=== PATIENT | female | born 1980 ===

== ENCOUNTER 2017-10-12 18:50 | Inpatient (IN) | payer BC ==
[2017-10-12 21:50] VITALS: BMI 41.8
[2017-10-12] MEDS: SODIUM CHLORIDE 0.9% 1,000 ML IV SCH (22:43)
[2017-10-12] MEDS: MORPHINE SULFATE 2 MG/ML SYRINGE IVP PRN (22:43)
[2017-10-12] MEDS: PANTOPRAZOLE 40 MG/10 ML VIAL IVP SCH (23:26)
[2017-10-12] MEDS ORDERED: ALPRAZolam 0.25 MG TAB PO PRN (23:59)
[2017-10-12] MEDS ORDERED: TEMAZEPAM 15 MG CAP PO PRN (23:59)
--- NOTE | 2017-10-13 04:39 | HP ---
HISTORY AND PHYSICAL DATE OF SERVICE: 10/12/2017 CHIEF COMPLAINT: Abdominal pain, nausea, vomiting. HISTORY OF PRESENT ILLNESS: This 37 -year-old woman with past medical history of hypertension, GERD, sleep apnea, not being followed by any primary care physician in the outpatient presents complaining of upper abdominal pain, nausea, vomiting for the last couple of days. The patient was evaluated in [facility] a couple days ago and today again because of increasing symptoms, the patient went there and patient was found to have obstructive jaundice with elevated bilirubin, elevated AST, ALT. The patient has also had intrahepatic biliary dilatation on the CT scan. Ultrasound could not be done. Because of multiple abnormalities, the patient was directly transferred to [facility] and admitted to the hospital for further evaluation and treatment. There is no history of any fever, rigors or chills. No history of headache, loss of consciousness, seizures at this time. PAST MEDICAL HISTORY: GERD, hypertension, sleep apnea. MEDICATIONS: Medications prior to admission include home medications are omeprazole. ALLERGIES: None. FAMILY HISTORY: History of diabetes mellitus in the family. SOCIAL HISTORY: No history of smoking. Occasional alcohol intake. 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 REVIEW OF SYSTEMS: ENT: No diminished vision. No diminished hearing. CARDIOVASCULAR: No angina or palpitations. RESPIRATORY: As mentioned earlier. GI as mentioned earlier : No dysuria or hematuria. Central nervous system: No numbness or weakness. Allergy/Immunology: No asthma or hayfever. Musculoskeletal as mentioned earlier. HEMATOLOGY/ONCOLOGY: No history of anemia. Endocrine: No history of diabetes or hypothyroidism. Constitutional: As mentioned earlier. Dermatology: Negative. Rheumatology: Negative. Psychiatric: As mentioned earlier. PHYSICAL EXAMINATION: Alert, oriented times three. Pulse 61, blood pressure 148/84, respiration 16, temperature 97.7, pulse ox 98% on room air. HEENT: Conjunctivae normal. Oral mucosa moist. NECK is no jugular venous distention. No carotid bruit. No lymph node enlargement. CARDIOVASCULAR SYSTEM: S1, S2 muffled. No S3, no S4. RESPIRATORY: Breath sounds diminished in the bases. No rhonchi and no crackles. ABDOMEN: Soft, obese, mild diffuse tenderness in the right upper quadrant. Otherwise no guarding, no rigidity. No mass palpable. No ascites. Bowel sounds diminished. LEGS: No edema and no swelling. NERVOUS SYSTEM: Higher functions as mentioned earlier. Moves all four limbs. No focal motor or sensory deficits. LYMPHATICS: No lymph nodes palpable in the neck, axillae or groin. SKIN: No ulcer, rash or bleeding. LAB STUDIES: Evaluated from outside. ASSESSMENT: 1. Right upper quadrant abdominal pain, nausea, vomiting, possible acute cholelithiasis with cholecystitis. 2. Possible obstructive jaundice. 3. Increased AST, ALT, alkaline phosphatase. 4. Gastroesophageal reflux disease. 5. Hypertension. 6. Sleep apnea. 7. Obesity with body mass index of 41.8. RECOMMENDATIONS AND DISCUSSION: In this 37-year-old woman who presented with multiple complex medical issues, we will monitor the patient closely, continue the current management and continue symptomatic treatment. Otherwise I would recommend gastroenterology consultation. Repeat labs. IV fluids. DVT prophylaxis. Monitor blood pressure closely. Otherwise, symptomatic treatment will be provided. The patient also will be recommended to follow up closely with primary physician after discharge as well. Surgery and Gastroenterology will be consulted. Further recommendations to follow. MMODL / IJN: [id number] /
[2017-10-13] MEDS: HYDROcodone/APAP 5-325MG 1 EACH TAB PO PRN (05:09)
--- NOTE | 2017-10-13 08:09 | US ---
EXAMINATION TYPE: US liver DATE OF EXAM: 10/13/2017 COMPARISON: NONE CLINICAL HISTORY: Poss Cholecystitis. EXAM MEASUREMENTS: Liver Length: 17.6 cm Gallbladder Wall: 0.5 cm CBD: 0.6 cm Right Kidney: 11.2 x 5.0 x 6.0 cm Pancreas: Obscured by bowel gas Liver: There is a coarsened and heterogenous hepatic echotexture, most commonly related to underlyin g hepatic steatosis. This limits evaluation for hepatic masses. No discrete masses seen on today's ex amination. Gallbladder: stones in neck Evidence for sonographic Garvey's sign: no CBD: wnl Right Kidney: No hydronephrosis or masses seen Multiple stones in neck of gallbladder. Technically challenging due to body habitus IMPRESSION: 1. Cholelithiasis without sonographic evidence of acute cholecystitis. 2. Coarsened and heterogenous hepatic echotexture which may be related to technique or underlying hep atic steatosis. Correlate with liver function tests.
[2017-10-13] MEDS: MORPHINE SULFATE 2 MG/ML SYRINGE IVP PRN ×3 (08:29→17:22)
[2017-10-13] MEDS: PANTOPRAZOLE 40 MG/10 ML VIAL IVP SCH ×2 (08:34→20:58)
[2017-10-13] MEDS: HEPARIN SODIUM,PORCINE 5,000 UNIT/ML 1 ML VIAL SQ SCH ×2 (08:34→20:58)
[2017-10-13] MEDS: SODIUM CHLORIDE 0.9% 1,000 ML IV SCH ×3 (08:36→20:58)
[2017-10-13 08:39] LABS: Basophils % (A) 1 %; Eosinophils # (A) 0.1 k/uL (0-0.7); Eosinophils % (A) 1 %; HCT 42.1 % (34.0-46.0); HGB 14.2 gm/dL (11.4-16.0); Lymphocytes # (A) 1.1 k/uL (1.0-4.8); Lymphocytes % (A) 17 %; MCH 28.8 pg (25.0-35.0); MCHC 33.6 g/dL (31.0-37.0); MCV 85.4 fL (80.0-100.0); Monocytes # (A) 0.4 k/uL (0-1.0); Monocytes % (A) 6 %; Neutrophils # (A) 4.9 k/uL (1.3-7.7); Neutrophils % (A) 75 %; Platelet Count 243 k/uL (150-450); RBC 4.92 m/uL (3.80-5.40); RDW 13.6 % (11.5-15.5); WBC 6.6 k/uL (3.8-10.6)
[2017-10-13 08:56] LABS: ALT 584 U/L (9-52); AST 312 U/L (14-36); Albumin 3.8 g/dL (3.5-5.0); Alkaline Phosphatase 200 U/L (38-126); Amylase 33 U/L (30-110); Anion Gap 13 mmol/L; Blood Urea Nitrogen 6 mg/dL (7-17); Calcium 8.7 mg/dL (8.4-10.2); Carbon Dioxide 24 mmol/L (22-30); Chloride 104 mmol/L (98-107); Glucose 99 mg/dL (74-99); Lipase 76 U/L (23-300); Potassium 3.5 mmol/L (3.5-5.1); Sodium 141 mmol/L (137-145); Total Bilirubin 8.1 mg/dL (0.2-1.3)
[2017-10-13] MEDS ORDERED: Potassium Replacement Protocol 1 EACH MISC MISCELLANE PRN (10:32)
--- NOTE | 2017-10-13 10:55 | P.CONS ---
History of Present Illness - Reason for Consult Consult date: 10/13/17 Obstructive jaundice Requesting physician: Jennie Ng - History of Present Illness 37-year-old female history of obesity BMI 41.8, GERD, hypertension, sleep apnea transferred from [facility] with acute jaundice right upper quadrant epigastric abdominal pain 3 days without fever. Denies acholic stools urine more dark. No history of jaundice or hepatitis. CT [facility] reported dilated intrahepatic biliary ducts with CBD measuring 1 cm. Liver ultrasound reported cholelithiasis. CBD within normal limits. No history of known liver disorders. No history of intravenous drug abuse no changes in medications. No recent travels. Prior to transfer total bilirubin 7.7. AST 389. ALT 793. AP 202. Lipase 128. HCG negative. Still reports midepigastric pain. This morning total bilirubin 8.1. AST 312. ALT 584. AP 200. White count 6.6. Hemoglobin 14.2. Platelet 243. Lipase 76. Review of Systems Constitutional: Denies fever, chills, sweats, weight gain, or loss. HEENT: Negative for migraines, blurred vision or loss, earaches, drainage, tinnitus, oral mucosal lesions, dysphagia, or odynophagia. CARDIAC: Negative for chest pain, arrhythmias, or palpitation. RESPIRATORY: Negative for shortness of breath, hemoptysis, cough, or sputum production. GI: See HPI for pertinent findings. : Negative for hematuria, urgency, frequency, polyuria, or dysuria. GYNc: Denies possibility of . Negative vaginal discharge. MUSCULOSKELETAL: Negative for muscle aches, swelling, arthritis, and arthralgias. NEUROLOGIC: Negative for stroke or TIA. ENDOCRINE: Negative for thyroid problems. SKIN: Negative for rash or itching. PSYCHIATRIC: Negative history for depression and anxiety Past Medical History Past Medical History: GERD/Reflux, Hypertension, Sleep Apnea/CPAP/BIPAP History of Any Multi-Drug Resistant Organisms: None Reported Past Surgical History: No Surgical Hx Reported Past Anesthesia/Blood Transfusion Reactions: No Reported Reaction Smoking Status: Never smoker - Past Family History Father Family Medical History: Diabetes Mellitus Medications and Allergies Home Medications Medication Instructions Recorded Confirmed Type Omeprazole 20 mg PO DAILY 10/12/17 10/13/17 History Allergies Allergy/AdvReac Type Severity Reaction Status Date / Time No Known Allergies Allergy Verified 06/20/18 22:08 Physical Exam Vitals: Vital Signs Temp Pulse Resp BP Pulse Ox 10/13/17 06:20 97.6 F 89 16 154/85 95 10/12/17 22:35 148/85 10/12/17 22:00 16 10/12/17 21:05 97.7 F 61 16 148/84 98 Intake and Output 10/12/17 10/13/17 10/13/17 22:59 06:59 14:59 Other: # Voids 0 1 Weight 107 kg General appearance: The patient is alert, oriented, in no acute distress. Jaundice. Sclerae icterus. HET: Head is normocephalic and atraumatic. Pupils are equal and reactive. Oropharynx is clear without lesions. Neck: Supple without lymphadenopathy. Trachea midline. Heart: S1 S2. Regular rate and rhythm. Lungs: No crackles or wheezes are heard. Abdomen: Soft, midepigastric right upper quadrant tenderness, nondistended with bowel sounds. No peritoneal signs. No palpable organomegaly or masses. Extremities: Normal skin color and turgor. No cyanosis, rash, ulceration, clubbing, or edema. Radial and pedal pulses are 2/4 bilaterally. Neurological: No focal deficits. Strength and sensation are grossly intact. Results CBC & Chem 7: 10/13/17 08:19 10/13/17 08:19 Labs: Abnormal Lab Results - Last 24 Hours (Table) 10/13/17 Range/Units 08:19 BUN 6 L (7-17) mg/dL Total Bilirubin 8.1 H (0.2-1.3) mg/dL AST 312 H (14-36) U/L ALT 584 H (9-52) U/L Alkaline Phosphatase 200 H (38-126) U/L CT scan - abdomen: report reviewed ([place] report reviewed by Dr. Murry) US - abdomen: report reviewed (Dr. Murry) Assessment and Plan (1) Obstructive jaundice Narrative/Plan: Acute right upper quadrant epigastric abdominal pain with new onset of jaundice evidence of radiographic cholelithiasis biliary duct dilation with elevated transaminases possible choledocholithiasis. Current Visit: Yes Status: Acute Code(s): K83.8 - OTHER SPECIFIED DISEASES OF BILIARY TRACT SNOMED Code(s): 99046697 (2) Cholelithiasis Current Visit: Yes Status: Acute Code(s): K80.20 - CALCULUS OF GALLBLADDER W /O CHOLECYSTITIS W/O OBSTRUCTION SNOMED Code(s): 737885826 (3) Morbid obesity with BMI of 40.0-44.9, adult Current Visit: Yes Status: Acute Code(s): E66.01 - MORBID (SEVERE) OBESITY DUE TO EXCESS CALORIES; Z68.41 - BODY MASS INDEX (BMI) 40.0-44.9, ADULT SNOMED Code(s): 394869151 (4) Abdominal pain Current Visit: Yes Status: Acute Code(s): R10.9 - UNSPECIFIED ABDOMINAL PAIN SNOMED Code(s): 84864933 Plan: 1. Hepatitis screen. ERCP. Nothing by mouth. We'll obtain PT/INR. The cellophane bath mixer has discussed the risks, benefits and alternative therapies for the above-mentioned procedure and for both sedation/analgesia as well as necessary blood product administration, if indicated, as they pertain to this patient. The patient has indicated understanding and acceptance of the risks and procedures discussed. Thank you for this kind referral and the opportunity to participate in the care of your patient. This consultation was discussed with Dr. Murry. The impression and plan of care have been directed as dictated.
[2017-10-13 12:03] LABS: INR 1.1 (<1.2)
[2017-10-13] MEDS ORDERED: LEVOFLOXACIN 500MG-D5W PMX 500 MG in DEXTROSE/WATER 1 100ML.BAG IVPB ONE (13:00)
[2017-10-13] MEDS ORDERED: INDOMETHACIN 50MG SUPPOSITORY RECTAL ONE (13:00)
--- NOTE | 2017-10-13 14:02 | P.GSCN ---
<Chelsey Stubbs - Last Filed: 10/13/17 13:48> History of Present Illness Consult date: 10/13/17 Reason for Consult: Abdominal pain History of present illness: 37-year-old jaundiced female who presented as a transfer from [facility] to be evaluated for persistent jaundice elevated bilirubin elevated AST and ALT. Patient stated that she did see her primary care provider in the outpatient setting when patient stated she was developing upper abdominal pain nausea vomiting had been ongoing for the past several days. She went into the [facility] had lab work drawn also had a CAT scan done which did show intra-hepatic biliary dilatation. Ultrasound could not be done at [facility] given the patient's clinical presentation the patient was transferred to [facility] patients being seen at the request of the attending for a surgical eval for the above-mentioned presentation 37-year-old female who is jaundiced in appearance does report experiencing right upper quadrant abdominal pain without fever. Patient has no significant past surgical or medical history. The computed tomography scan at [place] common bile duct within normal limits ultrasound the liver cholelithiasis the common bile duct measured 1 cm. Patient is scheduled today by GI service for an ERCP Lipase 76 Total bili 8.1, AST 312, ALT 584 Review of Systems Essentially unremarkable except as mentioned in the present illness Past Medical History Past Medical History: GERD/Reflux, Hypertension, Sleep Apnea/CPAP/BIPAP History of Any Multi-Drug Resistant Organisms: None Reported Past Surgical History: No Surgical Hx Reported Past Anesthesia/Blood Transfusion Reactions: No Reported Reaction Smoking Status: Never smoker - Past Family History Father Family Medical History: Diabetes Mellitus Medications and Allergies Home Medications Medication Instructions Recorded Confirmed Type Omeprazole 20 mg PO DAILY 10/12/17 10/13/17 History Allergies Allergy/AdvReac Type Severity Reaction Status Date / Time No Known Allergies Allergy Verified 10/12/17 22:08 Surgical - Exam Vital Signs Temp Pulse Resp BP Pulse Ox 97.7 F 61 16 148/84 98 10/12/17 21:05 10/12/17 21:05 10/12/17 21:05 10/12/17 21:05 10/12/17 21:05 GENERAL APPEARANCE: 37-year-old female jaundice reports a nausea sensation with persistent right upper quadrant pain VITAL SIGNS: Reviewed HEENT: Head is normocephalic and atraumatic. Pupils are equal and reactive. The nares are patent. Oropharynx is clear without lesions. NECK: Supple without lymphadenopathy. Traches midline. HEART: S1, S2. Regular rate and rhythm. No murmur noted LUNGS: No crackles or wheezes are heard. Adequate air movement ABDOMEN: Soft, tenderness right upper quadrant radiating to mid epigastric area , nondistended with good bowel sounds. No peritoneal signs. No palpable organomegaly or masses. Reports a nausea sensation no active emesis EXTREMITIES: Normal skin color and turgor. No cyanosis, rash, ulceration, clubbing or edema. Radial pedal pulses are 2/4 bilaterally. NEUROLOGICAL: No focal deficits. Strength and sensation are grossly intact. Results - Labs 10/13/17 08:19 10/13/17 08:19 Abnormal Lab Results - Last 24 Hours (Table) 10/13/17 Range/Units 08:19 BUN 6 L (7-17) mg/dL Total Bilirubin 8.1 H (0.2-1.3) mg/dL AST 312 H (14-36) U/L ALT 584 H (9-52) U/L Alkaline Phosphatase 200 H (38-126) U/L Diabetes panel 10/13/17 Range/Units 08:19 Sodium 141 (137-145) mmol/L Potassium 3.5 (3.5-5.1) mmol/L Chloride 104 (98-107) mmol/L Carbon Dioxide 24 (22-30) mmol/L BUN 6 L (7-17) mg/dL Creatinine 0.55 (0.52-1.04) mg/dL Glucose 99 (74-99) mg/dL Calcium 8.7 (8.4-10.2) mg/dL AST 312 H (14-36) U/L ALT 584 H (9-52) U/L Alkaline Phosphatase 200 H (38-126) U/L Total Protein 7.0 (6.3-8.2) g/dL Albumin 3.8 (3.5-5.0) g/dL Calcium panel 10/13/17 Range/Units 08:19 Calcium 8.7 (8.4-10.2) mg/dL Albumin 3.8 (3.5-5.0) g/dL Pituitary panel 10/13/17 Range/Units 08:19 Sodium 141 (137-145) mmol/L Potassium 3.5 (3.5-5.1) mmol/L Chloride 104 (98-107) mmol/L Carbon Dioxide 24 (22-30) mmol/L BUN 6 L (7-17) mg/dL Creatinine 0.55 (0.52-1.04) mg/dL Glucose 99 (74-99) mg/dL Calcium 8.7 (8.4-10.2) mg/dL Adrenal panel 10/13/17 Range/Units 08:19 Sodium 141 (137-145) mmol/L Potassium 3.5 (3.5-5.1) mmol/L Chloride 104 (98-107) mmol/L Carbon Dioxide 24 (22-30) mmol/L BUN 6 L (7-17) mg/dL Creatinine 0.55 (0.52-1.04) mg/dL Glucose 99 (74-99) mg/dL Calcium 8.7 (8.4-10.2) mg/dL Total Bilirubin 8.1 H (0.2-1.3) mg/dL AST 312 H (14-36) U/L ALT 584 H (9-52) U/L Alkaline Phosphatase 200 H (38-126) U/L Total Protein 7.0 (6.3-8.2) g/dL Albumin 3.8 (3.5-5.0) g/dL Assessment and Plan Assessment: Impression Present on admission epigastric pain radiating to the right upper quadrant suspect due to acute cholelithiasis Present on admission jaundice new onset Morbid obesity BMI 40 Obstructive jaundice as evident on x-ray showing cholelithiasis biliary duct dilatation with elevated transaminases Cholelithiasis Plan Await GI workup scheduled today for an ERCP will follow with you with further surgical recommendations pending findings from ERCP repeat labs in the morning DVT and GI prophylaxis IV fluid for hydration Pain control Surgical consultation note dictated for Dr. Reed The above impression and plan of care have been discussed and directed by signing physician. Chelsey Stubbs nurse practitioner acting as scribe for signing physician. <Dasha Reed - Last Filed: 10/13/17 20:53> Surgical - Exam Vital Signs Temp Pulse Resp BP Pulse Ox 97.7 F 61 16 148/84 98 10/12/17 21:05 10/12/17 21:05 10/12/17 21:05 10/12/17 21:05 10/12/17 21:05 Results - Labs 10/13/17 08:19 10/13/17 08:19 Abnormal Lab Results - Last 24 Hours (Table) 10/13/17 Range/Units 08:19 BUN 6 L (7-17) mg/dL Total Bilirubin 8.1 H (0.2-1.3) mg/dL AST 312 H (14-36) U/L ALT 584 H (9-52) U/L Alkaline Phosphatase 200 H (38-126) U/L Diabetes panel 10/13/17 Range/Units 08:19 Sodium 141 (137-145) mmol/L Potassium 3.5 (3.5-5.1) mmol/L Chloride 104 (98-107) mmol/L Carbon Dioxide 24 (22-30) mmol/L BUN 6 L (7-17) mg/dL Creatinine 0.55 (0.52-1.04) mg/dL Glucose 99 (74-99) mg/dL Calcium 8.7 (8.4-10.2) mg/dL AST 312 H (14-36) U/L ALT 584 H (9-52) U/L Alkaline Phosphatase 200 H (38-126) U/L Total Protein 7.0 (6.3-8.2) g/dL Albumin 3.8 (3.5-5.0) g/dL Calcium panel 10/13/17 Range/Units 08:19 Calcium 8.7 (8.4-10.2) mg/dL Albumin 3.8 (3.5-5.0) g/dL Pituitary panel 10/13/17 Range/Units 08:19 Sodium 141 (137-145) mmol/L Potassium 3.5 (3.5-5.1) mmol/L Chloride 104 (98-107) mmol/L Carbon Dioxide 24 (22-30) mmol/L BUN 6 L (7-17) mg/dL Creatinine 0.55 (0.52-1.04) mg/dL Glucose 99 (74-99) mg/dL Calcium 8.7 (8.4-10.2) mg/dL Adrenal panel 10/13/17 Range/Units 08:19 Sodium 141 (137-145) mmol/L Potassium 3.5 (3.5-5.1) mmol/L Chloride 104 (98-107) mmol/L Carbon Dioxide 24 (22-30) mmol/L BUN 6 L (7-17) mg/dL Creatinine 0.55 (0.52-1.04) mg/dL Glucose 99 (74-99) mg/dL Calcium 8.7 (8.4-10.2) mg/dL Total Bilirubin 8.1 H (0.2-1.3) mg/dL AST 312 H (14-36) U/L ALT 584 H (9-52) U/L Alkaline Phosphatase 200 H (38-126) U/L Total Protein 7.0 (6.3-8.2) g/dL Albumin 3.8 (3.5-5.0) g/dL Assessment and Plan Plan: Patient seen and evaluated. She confirms epigastric and right upper quadrant abdominal pain. Chemistries including studies consistent with multiple gallstones including choledocholithiasis. The patient is presently jaundiced. Surgical intervention also described regarding cholecystectomy to follow after her ERCP. We'll continue to follow closely.
[2017-10-13 16:43] LABS: Hepatitis A Antibody IgM Non-Reactive (Non-Reactive); Hepatitis B Core IgM Non-Reactive (Non-Reactive)
[2017-10-13] MEDS: ONDANSETRON 4 MG/2 ML VIAL IVP PRN (20:58)
[2017-10-14] MEDS: SODIUM CHLORIDE 0.9% 1,000 ML IV SCH ×3 (04:30→23:51)
[2017-10-14] MEDS: MORPHINE SULFATE 2 MG/ML SYRINGE IVP PRN ×2 (06:20→18:14)
[2017-10-14] MEDS ORDERED: INDOMETHACIN 50MG SUPPOSITORY RECTAL ONE (06:30)
[2017-10-14] MEDS ORDERED: LEVOFLOXACIN 500MG-D5W PMX 500 MG in DEXTROSE/WATER 1 100ML.BAG IVPB ONE (06:30)
[2017-10-14] MEDS ORDERED: PROPOFOL 10 MG/ML 20 ML VIAL IV ONE (07:34)
[2017-10-14] MEDS ORDERED: LIDOCAINE 1% INJ 10MG/ML (20 ML MDV) ONE (07:34)
[2017-10-14] MEDS ORDERED: KETAMINE 10 MG/ML 20 ML VIAL ONE (07:34)
[2017-10-14] MEDS ORDERED: MIDAZOLAM 2 MG/2 ML VIAL ONE (07:34)
[2017-10-14] MEDS ORDERED: IV FLUID CONTINUATION 1,000 ML IV ONE (07:37)
[2017-10-14] MEDS ORDERED: IOPAMIDOL-300 50ML BTL INJ ONE (08:16)
--- NOTE | 2017-10-14 08:34 | FL ---
EXAMINATION TYPE: FL ERCP HISTORY: Fluoroscopy time Impression: 1. Fluoroscopy support provided to the referring physician. 5 minutes and 4 seconds of fluoroscopy ti me provided..
--- NOTE | 2017-10-14 08:39 | P.PCN ---
Date of Procedure: 10/14/17 Procedure(s) Performed: Procedure: 1. Endoscopic retrograde cholangiopancreatography ERCP with sphincterotomy and passing of the balloon catheter multiple times across the sphincterotomy site fully inflated without seeing the common bile duct stone come out. 2. A 5 cm 7-Hungarian pigtail biliary stent was placed across the sphincterotomy site. Preoperative diagnosis: Cholelithiasis and suspected choledocholithiasis. Postoperative diagnosis: 1. Normal pancreatic duct. 2. Filling defect in the common bile duct consistent with common bile duct stone. 3. Adequate sphincterotomy performed. 4. The 8.5 and 11.5 mm balloon catheter were both used to sweep the common bile duct and both were withdrawn fully inflated multiple times but I did not see a common bile duct stone actually extracted. 5. An occlusion cholangiogram raised the possibility of retained common bile duct stone making me decided to place an [place] 7-Hungarian 5 cm biliary stent across the sphincterotomy site. Preparation and sedation: Was provided by anesthesia. Brief clinical history: The patient is a 37-year-old female history of obesity BMI 41.8, GERD, hypertension, sleep apnea transferred from [facility] with acute jaundice right upper quadrant epigastric abdominal pain 3 days without fever. Denies acholic stools urine more dark. No history of jaundice or hepatitis. CT [facility] reported dilated intrahepatic biliary ducts with CBD measuring 1 cm. Liver ultrasound reported cholelithiasis. CBD within normal limits. No history of known liver disorders. No history of intravenous drug abuse no changes in medications. No recent travels. Prior to transfer total bilirubin 7.7. AST 389. ALT 793. AP 202. Lipase 128. HCG negative. After transfer, her total bilirubin 8.1. AST 312. ALT 584. AP 200. White count 6.6. Hemoglobin 14.2. Platelet 243. Lipase 76. Procedure: With the patient in the prone position and after informed consent and adequate sedation, I passed the Olympus video duodenoscope down the esophagus into the stomach then passed it through the pylorus and brought the papilla into view. Initial cannulation and injection with dye resulted in opacification of the pancreatic duct which appeared normal. I was then able to inject and selectively cannulate the common bile duct and visualize the biliary tree. The common bile duct was slightly dilated and there was a filling defect consistent with common bile duct stone measuring between 8 and 9 mm. I proceeded to exchange the catheter for a sphincterotome over a guidewire and performed adequate sphincterotomy, following that, both an 8.5 and 11.5 mm balloon catheters were used to sweep the common bile duct multiple times and they were both withdrawn fully inflated but I did not see a stone come out during these maneuvers. An occlusion cholangiogram raised the possibility of retained common bile duct stone and I repeated the sweep of the bile duct using the both balloon catheters without any stones seen come out. I therefore left a pigtail 7-Hungarian 5 cm biliary stent across the sphincterotomy site before the endoscope was withdrawn. The patient tolerated the procedure well. Plan: Will allow clear liquid diet and monitor closely. I anticipate she will require cholecystectomy and possible intraoperative cholangiogram. Further plans can be made based on her course.
[2017-10-14 09:11] LABS: Basophils % (A) 1 %; Eosinophils # (A) 0.1 k/uL (0-0.7); Eosinophils % (A) 2 %; HCT 41.4 % (34.0-46.0); HGB 13.8 gm/dL (11.4-16.0); Lymphocytes # (A) 0.9 k/uL (1.0-4.8); Lymphocytes % (A) 18 %; MCH 29.3 pg (25.0-35.0); MCHC 33.2 g/dL (31.0-37.0); MCV 88.2 fL (80.0-100.0); Mean Platelet Volume 7.6; Monocytes # (A) 0.3 k/uL (0-1.0); Monocytes % (A) 6 %; Neutrophils # (A) 3.8 k/uL (1.3-7.7); Neutrophils % (A) 73 %; Platelet Count 213 k/uL (150-450); RBC 4.69 m/uL (3.80-5.40); RDW 13.7 % (11.5-15.5); WBC 5.2 k/uL (3.8-10.6)
[2017-10-14 09:42] LABS: ALT 464 U/L (9-52); AST 193 U/L (14-36); Albumin 3.7 g/dL (3.5-5.0); Alkaline Phosphatase 212 U/L (38-126); Anion Gap 13 mmol/L; Blood Urea Nitrogen 5 mg/dL (7-17); Calcium 8.5 mg/dL (8.4-10.2); Carbon Dioxide 22 mmol/L (22-30); Chloride 103 mmol/L (98-107); Glucose 99 mg/dL (74-99); Potassium 3.6 mmol/L (3.5-5.1); Sodium 138 mmol/L (137-145); Total Bilirubin 8.5 mg/dL (0.2-1.3); Total Protein 6.8 g/dL (6.3-8.2)
--- NOTE | 2017-10-14 10:03 | P.PN ---
Subjective Progress Note Date: 10/13/17 Progress note being dictated for Dr. Ng. Interval history: This is a 37-year-old female admitted with right upper quadrant, mid epigastric abdominal pain, accompanied by elevated LFTs, T bili. Evaluated by GI and surgery with recommendations noted. T bili 8.1, LFTs improving.liver ultrasound reporting cholelithiasis, hepatic steatosis. Afebrile. Objective - Vital Signs Vital signs: Vital Signs Temp 98.1 F 10/13/17 15:00 Pulse 94 10/13/17 15:00 Resp 18 10/13/17 16:16 BP 144/88 10/13/17 15:00 Pulse Ox 94 L 10/13/17 15:00 Intake & Output 10/13/17 10/13/17 10/14/17 06:59 18:59 06:59 Weight 107 kg 107 kg Other: # Voids 1 3 - Exam PHYSICAL EXAM: VITAL SIGNS: As above GENERAL: Sitting up in bed, no acute distress HEENT: Conjunctivae normal. eyes normal. NECK: No JVD. No thyroid enlargement. No LNs CARDIOVASCULAR: S1, S2 muffled. No murmur RESPIRATION: Breath sounds diminished in the bases. No rhonchi or crackles. No bronchial breathing. ABDOMEN: Soft, nondistended, mild mid epigastric/right upper quadrant tenderness.. No guarding. no masses palpable. Bowel sounds heard. LEGS: No edema. no swelling PSYCHIATRY: Alert and oriented -3, mood and affect normal. NERVOUS SYSTEM: Cranial N 2-12 grossly normal. Moves all 4 limbs. Diffuse weakness No focal deficits. Skin: no ulcer no rash Joints: No active swelling. No inflammation. Lymphatic system. No LN neck axilla or groin. - Labs CBC & Chem 7: 10/14/17 08:45 10/13/17 08:19 Labs: Abnormal Lab Results - Last 24 Hours (Table) 10/13/17 Range/Units 08:19 BUN 6 L (7-17) mg/dL Total Bilirubin 8.1 H (0.2-1.3) mg/dL AST 312 H (14-36) U/L ALT 584 H (9-52) U/L Alkaline Phosphatase 200 H (38-126) U/L Assessment and Plan Assessment: 1. Right upper quadrant abdominal pain, nausea, vomiting, possible acute cholelithiasis with cholecystitis 2. Possible obstructive jaundice with elevated LFTs 3. Gastroesophageal reflux disease 4. Hypertension 5. Obesity, BMI 41.8 Plan: Continue on current medication regime ,monitoring and symptomatic treatment. ERCP pending. Close monitoring of T bili/LFTs. Follow closely with GI and surgery. The impression and plan of care has been dictated as directed. : I performed a history and examination of this patient, discussed the same with the dictator. I agree with the dictator's note ,documented as a scribe. Any additional findings or plans will be noted.
[2017-10-14] MEDS: PANTOPRAZOLE 40 MG/10 ML VIAL IVP SCH ×2 (11:17→21:32)
[2017-10-14] MEDS: HEPARIN SODIUM,PORCINE 5,000 UNIT/ML 1 ML VIAL SQ SCH ×2 (11:18→21:31)
--- NOTE | 2017-10-14 15:21 | P.PN ---
Subjective Progress Note Date: 10/14/17 Progress note being dictated for Dr. Ng. Interval history: This is a 37-year-old female admitted with right upper quadrant, mid epigastric abdominal pain, accompanied by elevated LFTs, T bili. Evaluated by GI and surgery with recommendations noted. T bili 8.1, LFTs improving.liver ultrasound reporting cholelithiasis, hepatic steatosis. Afebrile. 10/14/2017 underwent ERCP yesterday, reporting suspected common bile duct stone ,sphincterotomy with biliary stent placement. Tolerated procedure well. Less pain today. T bili 8.5. LFTs with the exception of alk phos improving. Hepatitis panel negative. Afebrile. Scheduled for laparoscopic cholecystectomy tomorrow. Objective - Vital Signs Vital signs: Vital Signs Temp 97.3 F L 10/14/17 14:49 Pulse 79 10/14/17 14:49 Resp 18 10/14/17 14:49 BP 136/74 10/14/17 14:49 Pulse Ox 95 10/14/17 14:49 Intake & Output 10/13/17 10/14/17 10/14/17 18:59 06:59 18:59 Intake Total 0 800 Balance 0 800 Weight 107 kg 107 kg 107 kg Intake: IV 800 Oral 0 Other: # Voids 3 2 3 - Exam PHYSICAL EXAM: VITAL SIGNS: As above GENERAL: Sitting up in bed, no acute distress HEENT: Conjunctivae normal. eyes normal. NECK: No JVD. No thyroid enlargement. No LNs CARDIOVASCULAR: S1, S2 muffled. No murmur RESPIRATION: Breath sounds diminished in the bases. No rhonchi or crackles. ABDOMEN: Soft, nondistended, mild mid epigastric/right upper quadrant tenderness.No guarding. no masses palpable. Bowel sounds heard. LEGS: No edema. no swelling PSYCHIATRY: Alert and oriented -3, mood and affect normal. NERVOUS SYSTEM: Cranial N 2-12 grossly normal. Moves all 4 limbs. Diffuse weakness No focal deficits. Skin: no ulcer no rash Joints: No active swelling. No inflammation. - Labs CBC & Chem 7: 10/14/17 08:45 10/14/17 08:45 Labs: Abnormal Lab Results - Last 24 Hours (Table) 10/14/17 10/14/17 Range/Units 08:45 08:45 Lymphocytes # 0.9 L (1.0-4.8) k/uL BUN 5 L (7-17) mg/dL Creatinine 0.50 L (0.52-1.04) mg/dL Total Bilirubin 8.5 H (0.2-1.3) mg/dL AST 193 H (14-36) U/L ALT 464 H (9-52) U/L Alkaline Phosphatase 212 H (38-126) U/L Assessment and Plan Assessment: 1. Right upper quadrant abdominal pain, nausea, vomiting, possible acute cholelithiasis with cholecystitis. Status post ERCP,common bile duct stone , sphincterotomy with biliary stent placement 2. Possible obstructive jaundice with elevated LFTs 3. Gastroesophageal reflux disease 4. Hypertension 5. Obesity, BMI 41.8 Plan: Continue on current medication regime ,monitoring and symptomatic treatment. Laparoscopic cholecystectomy tomorrow. Close monitoring of T bili/ LFTs. Follow closely with surgery. The impression and plan of care has been dictated as directed. : I performed a history and examination of this patient, discussed the same with the dictator. I agree with the dictator's note ,documented as a scribe. Any additional findings or plans will be noted.
--- NOTE | 2017-10-14 21:06 | P.PN ---
Subjective Progress Note Date: 10/14/17 Patient is status post ERCP today. She reports resolution of right upper quadrant abdominal pain however she has epigastric discomfort from her ERCP. She is more comfortable. Still jaundiced. No reports fevers or chills. Objective - Vital Signs Vital signs: Vital Signs Temp 97.3 F L 10/14/17 14:49 Pulse 79 10/14/17 14:49 Resp 18 10/14/17 14:49 BP 136/74 10/14/17 14:49 Pulse Ox 95 10/14/17 14:49 Intake & Output 10/14/17 10/14/17 10/15/17 06:59 18:59 06:59 Intake Total 0 800 Balance 0 800 Weight 107 kg 107 kg Intake: IV 800 Oral 0 Other: # Voids 2 3 - Exam GENERAL: Well developed and in no acute distress. Pleasant. HEENT: Sclera icterus. Extraocular movements grossly intact. Moist buccal mucosa. Head is atraumatic, normocephalic. Hears conversational speech. No nasal drainage. NECK: Supple without lymphadenopathy. No JV distention. CHEST: Non-labored respirations and equal bilateral excursions. CARDIOVASCULAR: Regular rate and rhythm. Palpable 2+ radial pulses. ABDOMEN: Soft, mild tenderness along the epigastrium. No peritonitis. MUSCULOSKELETAL: No clubbing, cyanosis or edema. NEUROLOGIC: No focal or lateralizing signs. PSYCH: Appropriate affect. Alert and oriented to person, place and time. SKIN: Good skin turgor. Well perfused. - Labs CBC & Chem 7: 10/14/17 08:45 10/14/17 08:45 Labs: Abnormal Lab Results - Last 24 Hours (Table) 10/14/17 10/14/17 Range/Units 08:45 08:45 Lymphocytes # 0.9 L (1.0-4.8) k/uL BUN 5 L (7-17) mg/dL Creatinine 0.50 L (0.52-1.04) mg/dL Total Bilirubin 8.5 H (0.2-1.3) mg/dL AST 193 H (14-36) U/L ALT 464 H (9-52) U/L Alkaline Phosphatase 212 H (38-126) U/L Assessment and Plan (1) Choledocholithiasis with cholecystitis Current Visit: Yes Status: Acute Code(s): K80.40 - CALCULUS OF BILE DUCT W CHOLECYSTITIS, UNSP, W/O OBSTRUCTION SNOMED Code(s): 60982243 (2) Morbid obesity with BMI of 40.0-44.9, adult Current Visit: Yes Status: Acute Code(s): E66.01 - MORBID (SEVERE) OBESITY DUE TO EXCESS CALORIES; Z68.41 - BODY MASS INDEX (BMI) 40.0-44.9, ADULT SNOMED Code(s): 330441380 (3) Obstructive jaundice Current Visit: Yes Status: Acute Code(s): K83.8 - OTHER SPECIFIED DISEASES OF BILIARY TRACT SNOMED Code(s): 02121654 (4) Obstructive sleep apnea (adult) (pediatric) Current Visit: Yes Status: Acute Code(s): G47.33 - OBSTRUCTIVE SLEEP APNEA ( ADULT) (PEDIATRIC) SNOMED Code(s): 49093983 Plan: 1. Surgical intervention with robotic cholecystectomy was described. 2. She has moderately elevated bilirubin levels which puts her at risk for coagulopathy and increased bleeding. We'll reassess chemistries for normal bilirubin prior to proceeding with surgery. 3. Agree with low-fat diet in the interim.
[2017-10-15] MEDS: SODIUM CHLORIDE 0.9% 1,000 ML IV SCH ×2 (06:34→12:00)
[2017-10-15 08:15] LABS: INR 1.1 (<1.2); Prothrombin Time 10.7 sec (9.0-12.0)
[2017-10-15 08:29] LABS: ALT 353 U/L (9-52); AST 113 U/L (14-36); Albumin 3.5 g/dL (3.5-5.0); Alkaline Phosphatase 187 U/L (38-126); Anion Gap 12 mmol/L; Blood Urea Nitrogen 6 mg/dL (7-17); Calcium 8.5 mg/dL (8.4-10.2); Carbon Dioxide 22 mmol/L (22-30); Chloride 105 mmol/L (98-107); Glucose 96 mg/dL (74-99); Potassium 3.4 mmol/L (3.5-5.1); Sodium 139 mmol/L (137-145); Total Bilirubin 2.6 mg/dL (0.2-1.3); Total Protein 6.6 g/dL (6.3-8.2)
[2017-10-15] MEDS: HEPARIN SODIUM,PORCINE 5,000 UNIT/ML 1 ML VIAL SQ SCH ×2 (08:38→19:55)
[2017-10-15] MEDS: PANTOPRAZOLE 40 MG/10 ML VIAL IVP SCH ×2 (08:38→19:55)
[2017-10-15] MEDS: MORPHINE SULFATE 2 MG/ML SYRINGE IVP PRN (08:47)
[2017-10-15] MEDS ORDERED: Potassium Replacement Protocol 1 EACH MISC MISCELLANE PRN (11:07)
[2017-10-15] MEDS: POTASSIUM CHLORIDE ER 20 MEQ TAB.ER PO SCH ×2 (11:58→15:03)
--- NOTE | 2017-10-15 14:10 | P.PN ---
Subjective Progress Note Date: 10/15/17 No reports of abdominal pain. She is tolerating diet. She is status post ERCP. She is less jaundice. Objective - Vital Signs Vital signs: Vital Signs Temp 98.6 F 10/15/17 05:55 Pulse 74 10/15/17 05:55 Resp 18 10/15/17 05:55 BP 145/88 10/15/17 05:55 Pulse Ox 96 10/15/17 05:55 Intake & Output 10/14/17 10/15/17 10/15/17 18:59 06:59 18:59 Intake Total 800 Balance 800 Weight 107 kg Intake: IV 800 Other: # Voids 3 1 - Exam GENERAL: Well developed and in no acute distress. Pleasant. HEENT: No sclera icterus. Extraocular movements grossly intact. Moist buccal mucosa. Head is atraumatic, normocephalic. Hears conversational speech. No nasal drainage. NECK: Supple without lymphadenopathy. No JV distention. CHEST: Non-labored respirations and equal bilateral excursions. CARDIOVASCULAR: Regular rate and rhythm. Palpable 2+ radial pulses. ABDOMEN: Soft, nontender. Minimal distention. MUSCULOSKELETAL: No clubbing, cyanosis or edema. NEUROLOGIC: No focal or lateralizing signs. PSYCH: Appropriate affect. Alert and oriented to person, place and time. SKIN: Good skin turgor. Well perfused. - Labs CBC & Chem 7: 10/14/17 08:45 10/15/17 07:57 Labs: Abnormal Lab Results - Last 24 Hours (Table) 10/15/17 Range/Units 07:57 Potassium 3.4 L (3.5-5.1) mmol/L BUN 6 L (7-17) mg/dL Total Bilirubin 2.6 H (0.2-1.3) mg/dL AST 113 H (14-36) U/L ALT 353 H (9-52) U/L Alkaline Phosphatase 187 H (38-126) U/L Assessment and Plan (1) Choledocholithiasis with cholecystitis Current Visit: Yes Status: Acute Code(s): K80.40 - CALCULUS OF BILE DUCT W CHOLECYSTITIS, UNSP, W/O OBSTRUCTION SNOMED Code(s): 47117227 (2) Morbid obesity with BMI of 40.0-44.9, adult Current Visit: Yes Status: Acute Code(s): E66.01 - MORBID (SEVERE) OBESITY DUE TO EXCESS CALORIES; Z68.41 - BODY MASS INDEX (BMI) 40.0-44.9, ADULT SNOMED Code(s): 397655829 (3) Obstructive jaundice Current Visit: Yes Status: Acute Code(s): K83.8 - OTHER SPECIFIED DISEASES OF BILIARY TRACT SNOMED Code(s): 97572880 (4) Obstructive sleep apnea (adult) (pediatric) Current Visit: Yes Status: Acute Code(s): G47.33 - OBSTRUCTIVE SLEEP APNEA ( ADULT) (PEDIATRIC) SNOMED Code(s): 19028902 Plan: 1. Cholecystectomy described. She is now scheduled for surgery Tuesday. 2. Nothing by mouth after midnight for Tuesday. 3. Low-fat diet in the interim.
[2017-10-15] MEDS: 0.9% NACL WITH KCL 40 MEQ/L 1,000 ML IV SCH (20:58)
--- NOTE | 2017-10-15 21:18 | PN ---
PROGRESS NOTE DATE OF SERVICE: 10/15/2017. INTERVAL HISTORY: This 37-year-old woman who was admitted with right upper quadrant abdominal pain with cholelithiasis and as well as obstructive jaundice had ERCP. Currently the patient is scheduled for cholecystectomy by Dr. Reed. No chest pain. No palpitations. No fever. PHYSICAL EXAM: Alert and oriented x3. Pulse 75, blood pressure 130/86, respiration 16, temperature 97.8, pulse ox 97% on room air. HEENT conjunctivae normal. Oral mucosa moist. Neck is no jugular venous distention. No carotid bruit. No lymph node enlargement. CARDIOVASCULAR: S1, S2 muffled. RESPIRATORY: Breath sounds diminished in the bases. No rhonchi and no crackles. ABDOMEN: Soft. Mild diffuse discomfort. No guarding. No rigidity. No mass palpable. Legs: No edema, no swelling. Central nervous system: No focal deficits. LABS: Sodium 137, potassium 3.4. Bilirubin is 2.6, AST is 113 and ALT is 353, alkaline phosphatase 187. ASSESSMENT: 1. Right upper quadrant abdominal pain possibly acute cholelithiasis with choledocholithiasis. 2. Status post ERCP, sphincterotomy. 3. Elevated bilirubin with obstructive jaundice, improving. 4. Gastroesophageal reflux disease. 5. Hypertension. 6. Obesity with body mass index of 41.8. RECOMMENDATIONS AND DISCUSSION: Recommend to continue current medications, management and symptomatic treatment. Jaundice is improving as mentioned earlier, but however, we will continue to monitor and surgical evaluation by Dr. Reed. Possible cholecystectomy. Guarded prognosis. Further recommendations to follow. MMODL / IJN: [id number] /
[2017-10-16] MEDS: PANTOPRAZOLE 40 MG/10 ML VIAL IVP SCH ×2 (08:35→20:20)
[2017-10-16] MEDS: HEPARIN SODIUM,PORCINE 5,000 UNIT/ML 1 ML VIAL SQ SCH ×2 (08:35→20:19)
[2017-10-16] MEDS: 0.9% NACL WITH KCL 40 MEQ/L 1,000 ML IV SCH ×2 (09:05→09:40)
[2017-10-16 11:32] LABS: ALT 294 U/L (9-52); AST 95 U/L (14-36); Albumin 3.8 g/dL (3.5-5.0); Alkaline Phosphatase 162 U/L (38-126); Anion Gap 11 mmol/L; Blood Urea Nitrogen 5 mg/dL (7-17); Calcium 9.2 mg/dL (8.4-10.2); Carbon Dioxide 26 mmol/L (22-30); Chloride 104 mmol/L (98-107); Glucose 90 mg/dL (74-99); Potassium 4.3 mmol/L (3.5-5.1); Sodium 141 mmol/L (137-145); Total Bilirubin 1.7 mg/dL (0.2-1.3)
--- NOTE | 2017-10-16 14:05 | P.PN ---
Subjective Progress Note Date: 10/16/17 Her abdominal pain is resolved. Jaundice has improved. LFTs and total bilirubin improving daily. She is tolerating diet. Objective - Vital Signs Vital signs: Vital Signs Temp 97.0 F L 10/16/17 06:15 Pulse 95 10/16/17 06:15 Resp 18 10/16/17 06:15 BP 143/71 10/16/17 06:15 Pulse Ox 96 10/16/17 06:15 Intake & Output 10/15/17 10/16/17 10/16/17 18:59 06:59 18:59 Other: # Voids 3 2 1 - Exam GENERAL: Well developed and in no acute distress. Pleasant. HEENT: No sclera icterus. Extraocular movements grossly intact. Moist buccal mucosa. Head is atraumatic, normocephalic. Hears conversational speech. No nasal drainage. NECK: Supple without lymphadenopathy. No JV distention. CHEST: Non-labored respirations and equal bilateral excursions. CARDIOVASCULAR: Regular rate and rhythm. Palpable 2+ radial pulses. ABDOMEN: Soft, nontender. Nondistended. MUSCULOSKELETAL: No clubbing, cyanosis or edema. NEUROLOGIC: No focal or lateralizing signs. PSYCH: Appropriate affect. Alert and oriented to person, place and time. SKIN: Good skin turgor. Well perfused. - Labs CBC & Chem 7: 10/14/17 08:45 10/16/17 11:06 Labs: Abnormal Lab Results - Last 24 Hours (Table) 10/16/17 Range/Units 11:06 BUN 5 L (7-17) mg/dL Creatinine 0.50 L (0.52-1.04) mg/dL Total Bilirubin 1.7 H (0.2-1.3) mg/dL AST 95 H (14-36) U/L ALT 294 H (9-52) U/L Alkaline Phosphatase 162 H (38-126) U/L Assessment and Plan (1) Choledocholithiasis with cholecystitis Current Visit: Yes Status: Acute Code(s): K80.40 - CALCULUS OF BILE DUCT W CHOLECYSTITIS, UNSP, W/O OBSTRUCTION SNOMED Code(s): 87028425 (2) Morbid obesity with BMI of 40.0-44.9, adult Current Visit: Yes Status: Acute Code(s): E66.01 - MORBID (SEVERE) OBESITY DUE TO EXCESS CALORIES; Z68.41 - BODY MASS INDEX (BMI) 40.0-44.9, ADULT SNOMED Code(s): 599873474 (3) Obstructive jaundice Current Visit: Yes Status: Acute Code(s): K83.8 - OTHER SPECIFIED DISEASES OF BILIARY TRACT SNOMED Code(s): 08067264 (4) Obstructive sleep apnea (adult) (pediatric) Current Visit: Yes Status: Acute Code(s): G47.33 - OBSTRUCTIVE SLEEP APNEA ( ADULT) (PEDIATRIC) SNOMED Code(s): 61540884 Plan: 1. Nothing by mouth after midnight tonight. Robotic cholecystectomy tomorrow. 2. Repeat LFTs daily. 3. Benefits and risks of surgery described. 4. Likely discharge home Tuesday, the next day following surgery.
[2017-10-16] MEDS ORDERED: LACTATED RINGERS 1,000 ML IV SCH (18:11)
[2017-10-16] MEDS ORDERED: MORPHINE SULFATE 2 MG/ML SYRINGE IV PRN (18:11)
--- NOTE | 2017-10-16 23:03 | PN ---
PROGRESS NOTE DATE OF SERVICE: 10/16/2017 This 37-year-old woman was admitted with right upper quadrant abdominal pain, also had choledocholithiasis and the patient had ERCP. Dr. Reed is planning a cholecystectomy tomorrow. No chest pain. No palpitations. No fever. PHYSICAL EXAM: Alert and oriented times three. Pulse 85, blood pressure 135/82, respirations 16 , temperature 97.8, pulse ox 98% on room air. HEENT: Conjunctivae minimally . Oral mucosa moist. NECK is no jugular venous distention. No carotid bruit. No lymph node enlargement. Cardiovascular system: S1, S2. RESPIRATIONS: Breath sounds diminished in the bases. No rhonchi. No crackles. ABDOMEN: Soft, nontender. No mass palpable. LEGS are no edema, no swelling. CENTRAL NERVOUS SYSTEM: No focal deficits. LABS: The total bilirubin is 1.7 and AST is 95, ALT is 294. ASSESSMENT: 1. Right upper quadrant abdominal pain possible acute cholecystitis with choledocholithiasis. 2. Status post ERCP, sphincterotomy. 3. Elevated bilirubin, obstructive jaundice, improved. 4. Gastroesophageal reflux disease. 5. Hypertension. 6. Obesity with body mass index 41.8. RECOMMENDATIONS AND DISCUSSION: Recommend to continue current medications, management and symptomatic treatment. Otherwise, at this time, I would closely follow, hepatitis panel is negative. Bilirubin is improving. Closely follow with surgery. Guarded prognosis because of multiple complex medical issues. Further recommendations to follow. MMODL / IJN: [id number] / MTDD
[2017-10-17 07:51] LABS: ALT 313 U/L (9-52); AST 153 U/L (14-36); Albumin 4.2 g/dL (3.5-5.0); Alkaline Phosphatase 159 U/L (38-126); Anion Gap 12 mmol/L; Blood Urea Nitrogen 8 mg/dL (7-17); Calcium 9.4 mg/dL (8.4-10.2); Carbon Dioxide 26 mmol/L (22-30); Chloride 103 mmol/L (98-107); Glucose 94 mg/dL (74-99); Potassium 4.2 mmol/L (3.5-5.1); Sodium 141 mmol/L (137-145); Total Bilirubin 1.7 mg/dL (0.2-1.3); Total Protein 7.5 g/dL (6.3-8.2)
[2017-10-17] MEDS: PANTOPRAZOLE 40 MG/10 ML VIAL IVP SCH ×2 (09:08→20:49)
[2017-10-17] MEDS: HEPARIN SODIUM,PORCINE 5,000 UNIT/ML 1 ML VIAL SQ SCH ×3 (09:14→20:50)
[2017-10-17] MEDS ORDERED: IV FLUID CONTINUATION 1,000 ML IV ONE (10:45)
[2017-10-17] MEDS ORDERED: DEXAMETHASONE SOD PHOS (MDV) 100 MG/10 ML VIAL IVP ONE (10:46)
[2017-10-17] MEDS: ONDANSETRON 4 MG/2 ML VIAL IVP PRN ×2 (10:46→21:42)
--- NOTE | 2017-10-17 12:45 | P.HPADDEND ---
H&P Addendum H&P Addendum Date: 10/17/17 Benefits and risks of choelcystectomy reviewed. All questions were addressed.
[2017-10-17] MEDS: 0.9% NACL WITH KCL 40 MEQ/L 1,000 ML IV SCH (12:49)
[2017-10-17] MEDS ORDERED: ROCURONIUM BROMIDE 10 MG/ML 10 ML VIAL IV ONE (13:32)
[2017-10-17] MEDS ORDERED: HYDROmorphone (PF) 1 MG/ML ONE (13:32)
[2017-10-17] MEDS ORDERED: PROPOFOL 10 MG/ML 20 ML VIAL IV ONE (13:32)
[2017-10-17] MEDS ORDERED: KETOROLAC 30 MG/ML 1 ML VIAL ONE (13:32)
[2017-10-17] MEDS ORDERED: fentaNYL (PF) 50 MCG/ML 2 ML AMP ONE (13:32)
[2017-10-17] MEDS ORDERED: LIDOCAINE 1% INJ 10MG/ML (20 ML MDV) ONE (13:32)
[2017-10-17] MEDS ORDERED: NEOSTIGMINE 1 MG/ML 10 ML VIAL ONE (13:32)
[2017-10-17] MEDS ORDERED: GLYCOPYRROLATE 0.2 MG/ML 2 ML VIAL ONE (13:32)
[2017-10-17] MEDS ORDERED: SUCCINYLCHOLINE CHLORIDE 100 MG/5 ML SYR IV ONE (13:32)
[2017-10-17] MEDS ORDERED: LABETALOL 5 MG/ML VIAL MDV ONE (13:32)
[2017-10-17] MEDS ORDERED: INDOCYANINE GREEN 25 MG VIAL IV ONE (13:32)
[2017-10-17] MEDS ORDERED: ONDANSETRON 4 MG/2 ML VIAL ONE (13:32)
[2017-10-17] MEDS ORDERED: METOPROLOL TARTRATE 5 MG/5 ML VIAL IVP ONE (13:32)
[2017-10-17] MEDS ORDERED: MIDAZOLAM 2 MG/2 ML VIAL ONE (13:32)
[2017-10-17] MEDS ORDERED: INDOCYANINE GREEN 25 MG VIAL IV STA (13:49)
[2017-10-17] MEDS ORDERED: SODIUM CHLORIDE 0.9% 50 ML with ceFAZolin 2,000 MG IV ONE ×2 (13:50)
[2017-10-17] MEDS ORDERED: LIDOCAINE 1% INJ 10MG/ML (20 ML MDV) SQ ONE (13:57)
[2017-10-17] MEDS ORDERED: LACTATED RINGERS 1,000 ML IV ONE (15:43)
[2017-10-17] MEDS ORDERED: NALOXONE 0.4 MG/ML 1 ML VIAL IV PRN (15:56)
--- NOTE | 2017-10-17 15:56 | P.OP ---
Date of Procedure: 10/17/17 Description of Procedure: SURGEON: FABY GUSTAFSON MD PREOPERATIVE DIAGNOSES: 1. Symptomatic gallstones 2. Choledocholithiasis 3. Jaundice secondary to common bile duct obstruction 4. Status post ERCP 5. Morbid obesity due to excess calories, BMI 41.8 6. Obstructive sleep apnea 7. Gastroesophageal reflux disease 8. Hypertensive heart disease POSTOPERATIVE DIAGNOSES: 1. Symptomatic gallstones 2. Choledocholithiasis 3. Jaundice secondary to common bile duct obstruction 4. Status post ERCP 5. Morbid obesity due to excess calories, BMI 41.8 6. Obstructive sleep apnea 7. Gastroesophageal reflux disease 8. Hypertensive heart disease 9. Severe hepatomegaly adding complexity to the case 10. Fatty liver disease OPERATION: Robotic-assisted da Mayito Xi laparoscopic cholecystectomy, multiport with FIREFLY ESTIMATED BLOOD LOSS: 75 mL. SPECIMENS REMOVED: Gallbladder. COMPLICATIONS: None. OPERATIVE FINDINGS: 1. Severe hepatomegaly adding complexity to the case 2. Moderate intrahepatic gallbladder 3. Cholesterol yellow gallstones 4. Contaminated case 5. Cholecystectomy performed at infundibulum with 45 mm green robotic stapler load INDICATIONS: The patient is a 37-year-old female who presents with symptomatic gallstones with choledocholithiasis status post ERCP Surgical intervention with a laparoscopic cholecystectomy was described at length including injury to the biliary tree, bleeding, infection, need for further surgery. Informed consent was obtained. Robotic assisted laparoscopic approach was described. Benefits and risks of the procedure including but not limited to bleeding, infection, injury to the biliary tree was described. Informed consent was obtained. DESCRIPTION OF PROCEDURE: Patient was brought to the operating room, placed in supine position. After general induction, the abdomen had been prepped and draped in standard sterile fashion. The robotic da Mayito XI system was primed. After a timeout protocol was performed, the patient had been prepped and draped in standard sterile fashion. The patient was injected with indocyanine green. A 5 mm 0 degrees laparoscopic trocar entry was performed along the left upper quadrant. The abdomen insufflated to 15 mmHg pressure which she tolerated well. Diagnostic laparoscopy demonstrated no injury to bowel viscera or mesentery. Severe hepatomegaly with fatty liver disease was identified as the gallbladder was completely obscured. Moderate intra-abdominal omental fat was found. Next, two 8 mm robotic ports were placed along the right upper abdomen. The camera 8-mm port was maintained along the epigastrium. Another 8 mm port was placed along the left upper abdominal wall after exchanging the 5 mm port. Please note that the ports were placed at least 10 to 15 cm away from the target anatomy of the gallbladder. The robot was docked along the left lateral abdomen. The patient was repositioned in reverse Trendelenburg position. Using a grasper for arm 3, a grasper for arm 4, including hook cautery for arm 1 , the robotic system was docked and primed as described. Instruments were interchanged by the nurse practitioner physician assistant including hook cautery, Bovie cautery and clip appliers. I had sat at the console. Adhesions were identified along the infundibulum of the gallbladder and addressed using hook cautery. The gallbladder fundus was retracted over the dome of the liver. Initial attention was brought to the infundibulum which was gently retracted in the inferior lateral approach. The cystic structures were completely obscured with edematous infundibulum and fatty tissue. A dome down technique was performed removing the gallbladder from the hepatic fossa. Additionally the gallbladder was intrahepatic adding complexity to her case. Iatrogenic decompression of the gallbladder occurred. Yellow cholesterol gallstones were identified. Large PLASTIC clips were placed along the cystic lymph node. The gallbladder was mobilized to the infundibulum. The port along the left upper quadrant was exchanged for a 12 mm port. A green 45 mm robotic stapler was used to divide the gallbladder at the infundibulum. Electro-Bovie cautery was used to remove the gallbladder from the hepatic fossa. Hemostasis was checked and found to be adequate. The abdomen was irrigated with 1 L normal saline until solution was clear. A round #19 drain was placed at the hepatic fossa and exited via the left lateral abdominal wall with a 2-0 nylon stitch and bulb suction. The robot was undocked. I re-scrubbed into the case. Using a 10 mm Endo Catch bag via the left upper quadrant incision, the specimen was removed from the abdominal cavity. All pneumoperitoneum instruments were evacuated from the abdominal cavity. The incisions were reapproximated using 4-0 Monocryl in an interrupted subcuticular fashion. Fascial defects were less than 8 mm in size. Please note along the trocar sites, local anesthetic was placed as a field block prior to insertion of all instruments. The skin was cleansed with dilute hydrogen peroxide. Liquid glue was applied to the skin. Optifoam dressing was placed along the left upper quadrant and CALE drain site. At the end of the procedure needle, sponge, and instrument count had been verified correct by the manager surgical. The patient was transferred to postanesthesia care unit in stable condition. Console time 79 minutes
[2017-10-17] MEDS: MORPHINE SULFATE 2 MG/ML SYRINGE IVP PRN (20:35)
[2017-10-18] MEDS: 0.9% NACL WITH KCL 40 MEQ/L 1,000 ML IV SCH ×3 (01:42→21:46)
[2017-10-18] MEDS: MORPHINE SULFATE 2 MG/ML SYRINGE IVP PRN (06:03)
--- NOTE | 2017-10-18 06:16 | PN ---
PROGRESS NOTE DATE OF SERVICE: 10/17/2017 This 37-year-old woman was admitted with choledocholithiasis, underwent robotic assisted laparoscopic cholecystectomy. The patient is being closely monitored. No chest pain. No palpitations. No fever. EXAM: Alert and oriented times three. Pulse is 91, blood pressure 150/83, respirations 16, temperature 99.8, pulse ox 94% room air. HEENT: Conjunctivae normal. NECK: No jugular venous distention. CARDIOVASCULAR: S1, S2. RESPIRATORY SYSTEM: Breath sounds diminished at the bases. No rhonchi. No crackles. ABDOMEN is soft, nontender. No mass palpable. Legs are no edema. No swelling. LABS: CBC within normal limits and total bilirubin is 1.7 and AST is 153 and ALT is 313. ASSESSMENT: 1. Right upper quadrant abdominal with possible acute cholecystitis with choledocholithiasis status post laparoscopic cholecystectomy. 2. Status post ERCP and sphincterotomy. 3. Elevated bilirubin obstructive jaundice, improved. 4. Gastroesophageal reflux disease. 5. Hypertension. 6. Obesity with body mass index 41.8. RECOMMENDATIONS AND DISCUSSION: Recommend to continue current medications, management and symptomatic treatment. Otherwise, at this time, I recommend repeat labs in the morning. Continue rest of the medications per surgery and further recommendations to follow. Symptomatic treatment will be provided. MMODL / IJN: [id number] /
[2017-10-18 07:18] LABS: Basophils % (A) 0 %; Eosinophils % (A) 0 %; HCT 41.6 % (34.0-46.0); HGB 14.1 gm/dL (11.4-16.0); Lymphocytes # (A) 1.5 k/uL (1.0-4.8); Lymphocytes % (A) 16 %; MCHC 33.8 g/dL (31.0-37.0); MCV 88.6 fL (80.0-100.0); Mean Platelet Volume 7.4; Monocytes # (A) 0.3 k/uL (0-1.0); Monocytes % (A) 4 %; Neutrophils # (A) 7.5 k/uL (1.3-7.7); Neutrophils % (A) 79 %; Platelet Count 244 k/uL (150-450); RBC 4.69 m/uL (3.80-5.40); RDW 14.7 % (11.5-15.5); WBC 9.5 k/uL (3.8-10.6)
[2017-10-18 07:32] LABS: ALT 363 U/L (9-52); AST 206 U/L (14-36); Albumin 3.9 g/dL (3.5-5.0); Alkaline Phosphatase 147 U/L (38-126); Anion Gap 13 mmol/L; Blood Urea Nitrogen 9 mg/dL (7-17); Calcium 9.2 mg/dL (8.4-10.2); Carbon Dioxide 24 mmol/L (22-30); Chloride 101 mmol/L (98-107); Glucose 98 mg/dL (74-99); Sodium 138 mmol/L (137-145); Total Bilirubin 1.9 mg/dL (0.2-1.3)
[2017-10-18] MEDS: HEPARIN SODIUM,PORCINE 5,000 UNIT/ML 1 ML VIAL SQ SCH ×2 (08:47→21:41)
[2017-10-18] MEDS: PANTOPRAZOLE 40 MG/10 ML VIAL IVP SCH (08:47)
[2017-10-18] MEDS: ONDANSETRON 4 MG/2 ML VIAL IVP PRN (09:23)
[2017-10-18] MEDS: HYDROcodone/APAP 5-325MG 1 EACH TAB PO PRN ×3 (11:24→21:44)
--- NOTE | 2017-10-18 16:19 | PN ---
PROGRESS NOTE DATE OF SERVICE: 10/18/2017 This 37-year-old woman who was admitted with right upper quadrant abdominal pain had cholecystitis. Patient underwent laparoscopic cholecystectomy by Dr. Reed yesterday. No chest pain. No palpitations. No fever. PHYSICAL EXAMINATION: Alert and oriented x3. Pulse 79, blood pressure 133/84, respirations 16, temperature 98.9, pulse ox 94% on room air. HEENT: Conjunctivae normal. Oral mucosa moist. NECK: No jugular venous distention. No carotid bruit. No lymph node enlargement. CARDIOVASCULAR SYSTEM: S1, S2 muffled. RESPIRATORY SYSTEM: Breath sounds diminished at the bases. No rhonchi. No crackles. ABDOMEN: Soft. Status post surgery. LEGS: No edema. No swelling. NERVOUS SYSTEM: No focal deficit. LABS: CBC within normal limits. Otherwise, total bilirubin is 1.9 and AST is 206 and ALT is 363. Alkaline phosphatase is 147. ASSESSMENT: 1. Right upper quadrant abdominal pain with possible acute cholecystitis with choledocholithiasis, status post laparoscopic cholecystectomy. 2. Status post ERCP and sphincterotomy. 3. Elevated bilirubin; obstructive jaundice. 4. Gastroesophageal reflux disease. 5. Hypertension. 6. Increased AST, ALT. 7. Obesity with body mass index of 41.8. RECOMMENDATIONS AND DISCUSSION: I recommend to continue current medications, continue symptomatic treatment. Diet per Surgery. Repeat labs. Closely monitor. Further recommendations to follow. MMMELODYL / SEVERON: [id number] /
--- NOTE | 2017-10-18 17:54 | P.PN ---
Subjective Progress Note Date: 10/18/17 She is doing very well from surgery. She is ambulating and tolerating a regular diet. She is eager to home. Pain is well controlled. Objective - Vital Signs Vital signs: Vital Signs Temp 99.3 F 10/18/17 15:48 Pulse 86 10/18/17 15:48 Resp 18 10/18/17 15:48 BP 140/76 10/18/17 15:48 Pulse Ox 97 10/18/17 15:48 Intake & Output 10/17/17 10/18/17 10/18/17 18:59 06:59 18:59 Intake Total 1350 120 Output Total 75 1815 815 Balance 1275 -1695 -815 Weight 107 kg Intake: IV 1350 Oral 120 Output: Drainage 35 15 Right Lower Abdomen 35 15 Urine 1780 800 Estimated Blood Loss 75 Other: Voiding Method Toilet # Voids 2 1 1 - Exam GENERAL: Well developed and in no acute distress. Pleasant. HEENT: No sclera icterus. Extraocular movements grossly intact. Moist buccal mucosa. Head is atraumatic, normocephalic. Hears conversational speech. No nasal drainage. NECK: Supple without lymphadenopathy. No JV distention. CHEST: Non-labored respirations and equal bilateral excursions. CARDIOVASCULAR: Regular rate and rhythm. Palpable 2+ radial pulses. ABDOMEN: Soft, CALE drainage is serosanguinous. Minimal distention. Minimal incisional pain. MUSCULOSKELETAL: No clubbing, cyanosis or edema. NEUROLOGIC: No focal or lateralizing signs. PSYCH: Appropriate affect. Alert and oriented to person, place and time. SKIN: Good skin turgor. Well perfused. - Labs CBC & Chem 7: 10/18/17 06:28 10/18/17 06:28 Labs: Abnormal Lab Results - Last 24 Hours (Table) 10/18/17 Range/Units 06:28 Total Bilirubin 1.9 H (0.2-1.3) mg/dL AST 206 H (14-36) U/L ALT 363 H (9-52) U/L Alkaline Phosphatase 147 H (38-126) U/L Assessment and Plan (1) Choledocholithiasis with cholecystitis Current Visit: Yes Status: Acute Code(s): K80.40 - CALCULUS OF BILE DUCT W CHOLECYSTITIS, UNSP, W/O OBSTRUCTION SNOMED Code(s): 62189653 (2) Morbid obesity with BMI of 40.0-44.9, adult Current Visit: Yes Status: Acute Code(s): E66.01 - MORBID (SEVERE) OBESITY DUE TO EXCESS CALORIES; Z68.41 - BODY MASS INDEX (BMI) 40.0-44.9, ADULT SNOMED Code(s): 212991713 (3) Obstructive jaundice Current Visit: Yes Status: Acute Code(s): K83.8 - OTHER SPECIFIED DISEASES OF BILIARY TRACT SNOMED Code(s): 04948869 (4) Obstructive sleep apnea (adult) (pediatric) Current Visit: Yes Status: Acute Code(s): G47.33 - OBSTRUCTIVE SLEEP APNEA ( ADULT) (PEDIATRIC) SNOMED Code(s): 53519208 Plan: 1. May discharge home tomorrow. 2. CALE drain to be removed next week in the office. 3. Will need follow up with GI regarding her CBD stent. 4. Potential return to work in 2 weeks.
[2017-10-18] MEDS: PANTOPRAZOLE 40 MG TABLET PO SCH (21:42)
[2017-10-19 11:30] LABS: ALT 250 U/L (9-52); AST 88 U/L (14-36); Albumin 3.9 g/dL (3.5-5.0); Alkaline Phosphatase 118 U/L (38-126); Amylase 40 U/L (30-110); Anion Gap 12 mmol/L; Blood Urea Nitrogen 9 mg/dL (7-17); Calcium 9.1 mg/dL (8.4-10.2); Carbon Dioxide 23 mmol/L (22-30); Chloride 103 mmol/L (98-107); Glucose 107 mg/dL (74-99); Lipase 264 U/L (23-300); Potassium 4.5 mmol/L (3.5-5.1); Sodium 138 mmol/L (137-145); Total Bilirubin 1.6 mg/dL (0.2-1.3); Total Protein 6.9 g/dL (6.3-8.2)
--- NOTE | 2017-10-19 11:38 | P.PN ---
Subjective Progress Note Date: 10/19/17 37-year-old female sitting up in bed. Patient states she's been up ambulating in the hallway. Pain medication effective for pain control. Labs currently pending this morning. Tolerating a low-fat diet Patient is postop 17 of October robotic-assisted laparoscopic cholecystectomy for symptomatic gallstone cholelithiasis, jaundice secondary to common bile duct obstruction. Patient is status post ERCP done last Tuesday. Objective - Vital Signs Vital signs: Vital Signs Temp 98.2 F 10/18/17 22:50 Pulse 87 10/18/17 22:50 Resp 18 10/19/17 00:00 BP 141/86 10/18/17 22:50 Pulse Ox 96 10/18/17 22:50 Intake & Output 10/18/17 10/19/17 10/19/17 18:59 06:59 18:59 Intake Total 600 Output Total 835 Balance -835 600 Intake: Oral 600 Output: Drainage 35 Right Lower Abdomen 35 Urine 800 Other: Voiding Method Toilet # Voids 1 - Exam Physical exam 37-year-old female resting in bed appears no acute distress Lungs adequate air movement bilaterally no shortness of breath Heart S1-S2 audible regular Abdomen surgical dressing sites dry CALE drain in place serous drainage tolerating diet passing gas no nausea no vomiting surgical tenderness appropriate nondistended Extremities no edema - Labs CBC & Chem 7: 10/18/17 06:28 10/18/17 06:28 Assessment and Plan Assessment: Impression Present on admission epigastric pain radiating to the right upper quadrant suspect due to acute cholelithiasis Present on admission jaundice new onset Morbid obesity BMI 40 Obstructive jaundice as evident on x-ray showing cholelithiasis biliary duct dilatation with elevated transaminases Cholelithiasis Status post 17 of October robotic-assisted laparoscopic cholecystectomy for symptomatic gallstone cholelithiasis with jaundice secondary to common bile duct obstruction Status post ERCP done prior to procedure Plan A surgical perspective okay to proceed with a discharge after following up on pending labs DVT and GI prophylaxis IV fluid for hydration Pain control note dictated for Dr. Reed The above impression and plan of care have been discussed and directed by signing physician. Chelsey Stubbs nurse practitioner acting as scribe for signing physician.
[2017-10-19] MEDS: HYDROcodone/APAP 5-325MG 1 EACH TAB PO PRN (13:15)
[2017-10-19 14:13] VITALS: BP 147/92; PULSE 95; RESP 20; TEMP 97.4
[2017-10-19] MEDS: HEPARIN SODIUM,PORCINE 5,000 UNIT/ML 1 ML VIAL SQ SCH (15:28)
[2017-10-19] MEDS: PANTOPRAZOLE 40 MG TABLET PO SCH (16:20)
--- NOTE | 2017-10-19 16:47 | DS ---
DISCHARGE SUMMARY FINAL DIAGNOSES: 1. Right upper quadrant abdominal pain with possible acute cholecystitis, choledocholithiasis, status post laparoscopic cholecystectomy. 2. Status post ERCP and sphincterotomy. 3. Elevated bilirubin and obstructive jaundice. 4. Gastroesophageal reflux disease. 5. Hypertension. 6. Increased AST/ALT. 7. Obesity with body mass index 41.8. DISCHARGE DISPOSITION: The patient is being discharged in stable condition with guarded prognosis. HISTORY OF PRESENT ILLNESS: This 37-year-old woman with a past medical history of multiple medical problems was admitted with choledocholithiasis and other findings as mentioned earlier. The patient had ERCP and sphincterotomy. Subsequently patient had laparoscopic cholecystectomy. Patient tolerated the procedure. On exam, vital signs stable. Cardiovascular: S1, S2. Abdomen soft. Nervous system: No focal deficits. Currently the bilirubin improved to 1.6 and AST is 88 and ALT is 250. The patient is being discharged in stable condition with guarded prognosis. DISCHARGE ADVICE AND MEDICATIONS: 1. Discharge diet is cardiac diet. 2. Activity limited until followup. 3. Follow up with Dr. Mccrary in 2-3 days. 4. Followup with surgery as advised. 5. Omeprazole 20 mg p.o. daily. 6. CBC, CMP with primary care physician. 7. MMODL / IJN: [id number] /
== END 2017-10-19 15:45 | disposition home or self-care (01) | DRG 418 ==
LOC: 4MS4W 21:08 → 6PED 10-16 18:42
PROVIDERS: ADMIT Internal Medicine; ATTEND Internal Medicine
PROC: BF101ZZ Fluoroscopy of Bile Ducts using Low Osmolar Contrast (ICD-10-PCS; principal; 2017-10-14 07:25)
PROC: 0F798DZ Dilation of Common Bile Duct with Intraluminal Device, Via Natural or Artificial Opening Endoscopic (ICD-10-PCS; principal; 2017-10-14 07:25)
PROC: 0FT44ZZ Resection of Gallbladder, Percutaneous Endoscopic Approach (ICD-10-PCS; 2017-10-17)
PROC: 8E0W4CZ Robotic Assisted Procedure of Trunk Region, Percutaneous Endoscopic Approach (ICD-10-PCS; 2017-10-17)
DX: K80.62 Calculus of gallbladder and bile duct with acute cholecystitis without obstruction (principal); Q44.1 Other congenital malformations of gallbladder; Z68.41 Body mass index [BMI] 40.0-44.9, adult; E66.01 Morbid (severe) obesity due to excess calories; G47.33 Obstructive sleep apnea (adult) (pediatric); I11.9 Hypertensive heart disease without heart failure; K21.9 Gastro-esophageal reflux disease without esophagitis; K76.0 Fatty (change of) liver, not elsewhere classified; Z79.899 Other long term (current) drug therapy; Z83.3 Family history of diabetes mellitus; R16.0 Hepatomegaly, not elsewhere classified
CPT/HCPCS: 43260; 43262; 43274; 74330; 76705; 80053; 80074; 81025; 82150; 83690; 83735; 85025; 85610; 88304

== ENCOUNTER 2018-01-19 10:41 | Day surgery (SDC) | payer BC ==
[2018-01-17 08:42] VITALS: BMI 38.9
[~2018-01-19 10:41] MED LIST: LACTATED RINGERS 1,000 ML IV SCH
[2018-01-19 11:21] VITALS: TEMP 97.6
[2018-01-19] MEDS ORDERED: LIDOCAINE 1% 20 ML VIAL (10MG/ML) FOR IV START INTRADERMA ONE (11:40)
[2018-01-19] MEDS ORDERED: INDOMETHACIN 50MG SUPPOSITORY RECTAL ONE (12:00)
[2018-01-19] MEDS ORDERED: LEVOFLOXACIN 500MG-D5W PMX 500 MG in DEXTROSE/WATER 1 100ML.BAG IVPB ONE (12:00)
[2018-01-19] MEDS ORDERED: MIDAZOLAM 2 MG/2 ML VIAL ONE (13:22)
[2018-01-19] MEDS ORDERED: LIDOCAINE 1% INJ 10MG/ML (20 ML MDV) ONE (13:22)
[2018-01-19] MEDS ORDERED: PROPOFOL 10 MG/ML 20 ML VIAL IV ONE (13:22)
[2018-01-19] MEDS ORDERED: fentaNYL (PF) 50 MCG/ML 2 ML AMP ONE (13:22)
--- NOTE | 2018-01-19 13:42 | P.PCN ---
Date of Procedure: 01/19/18 Procedure(s) Performed: Procedure: Esophagogastroduodenoscopy and removal of biliary stent. Preoperative diagnosis: History of choledocholithiasis and prior sphincterotomy and stent placement. Postoperative diagnosis: Successful removal of the biliary stent using the snare. Preparation sedation: Was provided by anesthesia. Brief clinical history: The patient is a 37-year-old female who in September of this year was transferred from [facility] to [facility] because of abdominal pain and acute jaundice. She was found to have cholelithiasis and choledocholithiasis. I performed an ERCP with sphincterotomy and placed a biliary stent. The patient had cholecystectomy afterwards. She returns today to have the stent removed. She has been doing well. Procedure: With the patient on the left lateral decubitus position and after informed consent and adequate sedation, I passed the Olympus-GIF 160 video upper endoscope through the cricopharyngeus down the esophagus. The endoscope was then passed into the stomach which was insufflated with air and inspected in detail including the retroflex view in the cardia. Finally, the endoscope was passed through the pylorus into the duodenum. Pyloric channel, duodenal bulb but, post bulbar area and descending duodenum as well as the stomach and esophagus appeared normal with the only finding of the biliary stent emerging from the papillary orifice. At this point, I proceeded to pass the snare through the operating channel of the endoscope and captured the stent which was then removed intact by withdrawing the endoscope and the snare. The patient tolerated the procedure well. Plan: The patient was reassured. She will follow-up with you as planned further investigation as needed based on her course.
[2018-01-19 13:59] VITALS: BP 122/73; PULSE 82; RESP 18
== END 2018-01-19 14:25 | disposition home or self-care (01) ==
LOC: ORWHC2ENDO 10:41
DX: Z46.59 Encounter for fitting and adjustment of other gastrointestinal appliance and device (principal); K21.9 Gastro-esophageal reflux disease without esophagitis; I10 Essential (primary) hypertension; G47.33 Obstructive sleep apnea (adult) (pediatric); Z79.899 Other long term (current) drug therapy; Z99.89 Dependence on other enabling machines and devices
CPT/HCPCS: 81025; 84703; 43247; J2250; J2001; J3010; J2704; 44799

== ENCOUNTER 2018-01-20 03:17 | Inpatient (IN) | payer BC ==
[2018-01-20] MEDS ORDERED: VANCOMYCIN IV PER PHARMACY 1 EACH MISC MISCELLANE PRN ×2 (03:23→16:54)
[2018-01-20] MEDS ORDERED: metroNIDAZOLE-NS PMX 500 MG in SALINE 1 100ML.BAG IVPB STA (03:24)
[2018-01-20 03:29] LABS: Glucose,Whole Blood 115 mg/dL (75-99)
[2018-01-20] MEDS ORDERED: VANCOMYCIN 1,500 MG in SODIUM CHLORIDE 0.9% 250 ML IVPB STA (03:30)
--- NOTE | 2018-01-20 03:41 | ED ---
General Adult HPI - General Stated complaint: Sepsis Time Seen by Provider: 01/20/18 03:23 - History of Present Illness Initial comments: Abby is a 37-year-old female with a past medical history of choledocholithiasis diagnosed in September of this year. At that time she underwent sphincterotomy and common bile duct stent placement, she subsequently underwent a cystectomy without complication. Patient returned to our hospital on January 19 for EGD with common bile duct stent removal by Dr. Murry. Patient tolerated the procedure well and was discharged home. Patient reports that shortly after the procedure she began having worsening right upper quadrant abdominal pain. This persisted throughout the evening and in the [employer] on January 20 she sought care at her local emergency department for evaluation of worsening abdominal pain, generalized malaise, subjective fever. Plan initial evaluation the patient was noted to be tachycardic with a heart rate in the 150s, hypotensive, an oral temperature of 100.3. A sepsis workup was initiated and due to her tachycardia in the postoperative setting a CT pulmonary embolism study as well as a CT of the abdomen were obtained. Labs reveal leukocytosis with neutrophilia, elevated transaminases, elevated alk phos , elevated total bilirubin. This is consistent with sepsis secondary to post operative ascending cholangitis. Patient was given 3 L of normal saline and a dose of Zosyn prior to transfer. - Related Data Home Medications Medication Instructions Recorded Confirmed Omeprazole 20 mg PO DAILY 10/12/17 01/19/18 Magnesium Gluconate [Magonate] 500 mg PO DAILY 01/17/18 01/17/18 Sulligent-3 Fatty Acids/Fish Oil [Fish 4 each PO DAILY 01/17/18 01/17/18 Oil 1,000 mg Softgel] Potassium 99 mg PO DAILY 01/17/18 01/17/18 Allergies Allergy/AdvReac Type Severity Reaction Status Date / Time No Known Allergies Allergy Verified 01/19/18 11:01 Review of Systems ROS Statement: Those systems with pertinent positive or pertinent negative responses have been documented in the HPI. ROS Other: All systems not noted in ROS Statement are negative. Past Medical History Past Medical History: GERD/Reflux, Hypertension, Liver Disease, Sleep Apnea/CPAP /BIPAP Additional Past Medical History / Comment(s): has cpap machine, fatty liver History of Any Multi-Drug Resistant Organisms: None Reported Past Surgical History: Cholecystectomy (September 2017) Additional Past Surgical History / Comment(s): wisdom teeth, CBD stent September 2017 , removed January 19, 2018 Past Anesthesia/Blood Transfusion Reactions: No Reported Reaction Smoking Status: Never smoker - Past Family History Father Family Medical History: Diabetes Mellitus General Exam - General Exam Comments Initial Comments: GENERAL: Toxic-appearing obese female Skin appears flushed HENT: Normocephalic, Atraumatic. Neck is soft and supple. No significant lymphadenopathy is noted. Oropharynx is clear. Moist mucous membranes. Neck has full range of motion without eliciting any pain. EYES: Conjunctiva were pink and moist. Extraocular movements were intact and pupils were equal round and reactive to light. Eyelids were unremarkable. PULMONARY: Unlabored respirations. Good breath sounds bilaterally. No audible rales rhonchi or wheezing was noted. CARDIOVASCULAR: Tachycardia, regular ABDOMEN: Tenderness to palpation of the right upper quadrant SKIN: Well-healed surgical incisions on the abdomen consistent with history of off her sock a cholecystectomy Contact dermatitis noted to the right antecubital fossa likely secondary to dressing placed during previous ERCP NEUROLOGIC: Patient is alert and oriented x3. Cranial nerves II through XII are grossly intact. Normal speech, volume and content. Symmetrical smile. MUSCULOSKELETAL: Normal extremities with adequate strength and full range of motion. No lower extremity swelling or edema. No calf tenderness. LYMPHATICS: No significant lymphadenopathy is noted PSYCHIATRIC: Normal psychiatric evaluation. Limitations: no limitations Course Vital Signs 01/20/18 01/20/18 01/20/18 03:22 03:28 03:57 Temperature 98.7 F Pulse Rate 122 H 117 H 109 H Respiratory 15 16 16 Rate Blood Pressure 103/52 101/50 91/54 O2 Sat by Pulse 98 99 99 Oximetry 01/20/18 01/20/18 01/20/18 04:01 04:31 05:00 Temperature Pulse Rate 115 H 108 H 105 H Respiratory 15 18 Rate Blood Pressure 91/52 94/55 O2 Sat by Pulse 98 98 Oximetry 01/20/18 05:16 Temperature Pulse Rate 103 H Respiratory 16 Rate Blood Pressure 96/52 O2 Sat by Pulse 97 Oximetry EKG Findings - EKG Comments: EKG Findings:: EKG obtained at 3:21 AM, rate is 124, rhythm is sinus tachycardia as there is a P waves before each QRS. There is some artifact noted. Normal axis, normal intervals, and no acute ST elevations or depressions no evidence of acute ischemia or infarction. Medical Decision Making - Medical Decision Making Patient care was discussed with the transferring physician. This is a 37-year- old female who underwent ERCP with common bile duct stent removal on January 19, approximately 12 hours later presented to an outside ED septic likely due to ascending cholangitis. An appropriate sepsis workup was obtained at the outside ED as well as a computed tomography scan of the chest to rule out pulmonary embolus him, computed tomography scan of the chest was negative. Computed tomography scan of the abdomen had expected postoperative changes with no obvious abscess noted. Patient received a 3 L IV fluid bolus, and Zosyn prior to transfer Upon arrival patient is persistently tachycardic, flushed-appearing, blood pressure 103/50s Repeat labs, including blood cultures were ordered Vancomycin and Flagyl were added to the antibiotic regimen Patient care was discussed with Dr. Lamar of the gastroenterology team who agrees with workup and treatment as ordered, recommends admission to the intensive care unit with the plan for urgent ERCP in the morning. Patient care was discussed with the medical transcription radiology Dr. Jimenez who agrees with plan for admission to the intensive care unit for close monitoring Admission orders and consults were placed Repeat doses of antibiotics at appropriate time intervals were ordered. IV fluids and morphine for pain were ordered. She was updated on the plan for admission to the intensive care unit and repeat ERCP. Patient is agreeable. - Lab Data Result diagrams: 01/20/18 03:34 01/20/18 03:34 Lab Results 01/20/18 01/20/18 01/20/18 Range/Units 03:25 03:34 03:34 WBC 13.8 H (3.8-10.6) k/uL RBC 4.39 (3.80-5.40) m/uL Hgb 12.6 (11.4-16.0) gm/dL Hct 37.4 (34.0-46.0) % MCV 85.3 (80.0-100.0) fL MCH 28.6 (25.0-35.0) pg MCHC 33.5 (31.0-37.0) g/dL RDW 14.3 (11.5-15.5) % Plt Count 218 (150-450) k/uL Neutrophils % 94 % Lymphocytes % 2 % Monocytes % 2 % Eosinophils % 1 % Basophils % 0 % Neutrophils # 12.9 H (1.3-7.7) k/uL Lymphocytes # 0.3 L (1.0-4.8) k/uL Monocytes # 0.3 (0-1.0) k/uL Eosinophils # 0.1 (0-0.7) k/uL Basophils # 0.0 (0-0.2) k/uL PT (9.0-12.0) sec INR (<1.2) APTT (22.0-30.0) sec Sodium 136 L (137-145) mmol/L Potassium 3.4 L (3.5-5.1) mmol/L Chloride 105 (98-107) mmol/L Carbon Dioxide 20 L (22-30) mmol/L Anion Gap 11 mmol/L BUN 7 (7-17) mg/dL Creatinine 0.49 L (0.52-1.04) mg/dL Est GFR (CKD-EPI)AfAm >90 (>60 ml/min/1.73 sqM) Est GFR (CKD-EPI)NonAf >90 (>60 ml/min/1.73 sqM) Glucose 121 H (74-99) mg/dL POC Glucose (mg/dL) 115 H (75-99) mg/dL POC Glu Buttonhole Maker ID Froylan Crenshaw Plasma Lactic Acid Lawson (0.7-2.0) mmol/L Calcium 8.1 L (8.4-10.2) mg/dL Total Bilirubin 3.4 H (0.2-1.3) mg/dL AST 345 H (14-36) U/L ALT 262 H (9-52) U/L Alkaline Phosphatase 111 (38-126) U/L Total Protein 6.3 (6.3-8.2) g/dL Albumin 3.2 L (3.5-5.0) g/dL 01/20/18 01/20/18 Range/Units 03:34 03:34 WBC (3.8-10.6) k/uL RBC (3.80-5.40) m/uL Hgb (11.4-16.0) gm/dL Hct (34.0-46.0) % MCV (80.0-100.0) fL MCH (25.0-35.0) pg MCHC (31.0-37.0) g/dL RDW (11.5-15.5) % Plt Count (150-450) k/uL Neutrophils % % Lymphocytes % % Monocytes % % Eosinophils % % Basophils % % Neutrophils # (1.3-7.7) k/uL Lymphocytes # (1.0-4.8) k/uL Monocytes # (0-1.0) k/uL Eosinophils # (0-0.7) k/uL Basophils # (0-0.2) k/uL PT 11.9 (9.0-12.0) sec INR 1.2 H (<1.2) APTT 25.0 (22.0-30.0) sec Sodium (137-145) mmol/L Potassium (3.5-5.1) mmol/L Chloride (98-107) mmol/L Carbon Dioxide (22-30) mmol/L Anion Gap mmol/L BUN (7-17) mg/dL Creatinine (0.52-1.04) mg/dL Est GFR (CKD-EPI)AfAm (>60 ml/min/1.73 sqM) Est GFR (CKD-EPI)NonAf (>60 ml/min/1.73 sqM) Glucose (74-99) mg/dL POC Glucose (mg/dL) (75-99) mg/dL POC Glu Buttonhole Maker ID Plasma Lactic Acid Lawson 0.9 (0.7-2.0) mmol/L Calcium (8.4-10.2) mg/dL Total Bilirubin (0.2-1.3) mg/dL AST (14-36) U/L ALT (9-52) U/L Alkaline Phosphatase (38-126) U/L Total Protein (6.3-8.2) g/dL Albumin (3.5-5.0) g/dL Disposition Clinical Impression: Ascending cholangitis, Sepsis, Status post endoscopic retrograde cholangiopancreatography Disposition: ADMITTED IP TO THIS HOSP
[2018-01-20] MEDS ORDERED: NALOXONE 0.4 MG/ML 1 ML VIAL IV PRN (03:44)
[2018-01-20 03:52] LABS: Basophils % (A) 0 %; Eosinophils # (A) 0.1 k/uL (0-0.7); Eosinophils % (A) 1 %; HCT 37.4 % (34.0-46.0); HGB 12.6 gm/dL (11.4-16.0); Lymphocytes # (A) 0.3 k/uL (1.0-4.8); Lymphocytes % (A) 2 %; MCH 28.6 pg (25.0-35.0); MCHC 33.5 g/dL (31.0-37.0); MCV 85.3 fL (80.0-100.0); Monocytes # (A) 0.3 k/uL (0-1.0); Monocytes % (A) 2 %; Neutrophils # (A) 12.9 k/uL (1.3-7.7); Neutrophils % (A) 94 %; Platelet Count 218 k/uL (150-450); RBC 4.39 m/uL (3.80-5.40); RDW 14.3 % (11.5-15.5); WBC 13.8 k/uL (3.8-10.6)
[2018-01-20] MEDS: SODIUM CHLORIDE 0.9% 1,000 ML IV SCH ×3 (03:52→17:05)
[2018-01-20 04:02] LABS: ALT 262 U/L (9-52); AST 345 U/L (14-36); Albumin 3.2 g/dL (3.5-5.0); Alkaline Phosphatase 111 U/L (38-126); Anion Gap 11 mmol/L; Blood Urea Nitrogen 7 mg/dL (7-17); Calcium 8.1 mg/dL (8.4-10.2); Carbon Dioxide 20 mmol/L (22-30); Chloride 105 mmol/L (98-107); Glucose 121 mg/dL (74-99); Potassium 3.4 mmol/L (3.5-5.1); Sodium 136 mmol/L (137-145); Total Bilirubin 3.4 mg/dL (0.2-1.3); Total Protein 6.3 g/dL (6.3-8.2)
[2018-01-20 04:21] LABS: INR 1.2 (<1.2); Prothrombin Time 11.9 sec (9.0-12.0)
[2018-01-20 05:46] LABS: Magnesium 1.3 mg/dL (1.6-2.3); Phosphorus 2.6 mg/dL (2.5-4.5)
[2018-01-20] MEDS ORDERED: Potassium Replacement Protocol 1 EACH MISC MISCELLANE PRN (06:23)
[2018-01-20 06:42] LABS: Glucose,Whole Blood 125 mg/dL (75-99)
[2018-01-20 06:47] LABS: Appearance,Urine Clear (Clear); Bilirubin,Urine Negative (Negative); Blood,Urine Negative (Negative); Color,Urine Yellow; Glucose,Urine (UA) Negative (Negative); Ketones,Urine 4+ (Negative); Leukocyte Esterase,Urine Negative (Negative); Nitrite,Urine Negative (Negative); Protein,Urine Trace (Negative); Urobilinogen,Urine <2.0 mg/dL (<2.0)
[2018-01-20] MEDS: MAGNESIUM SULFATE-D5W PMX 1 GM in DEXTROSE/WATER 1 100ML.BAG IVPB SCH ×2 (07:21→08:55)
[2018-01-20] MEDS: POTASSIUM CHLORIDE 10 MEQ in WATER FOR INJECTION 1 100ML.BAG IVPB SCH ×4 (07:27→13:55)
[2018-01-20 08:42] LABS: Specific Gravity,Urine >1.050 (1.001-1.035)
[2018-01-20] MEDS: PIPERACILLIN-TAZOBACTAM 3.375 GM in DEXTROSE/WATER 1 50ML.BAG IVPB SCH ×2 (08:53→16:01)
[2018-01-20] MEDS: FAMOTIDINE 20 MG/2 ML VIAL IV SCH ×2 (08:56→20:00)
--- NOTE | 2018-01-20 09:20 | P.CNPUL ---
History of Present Illness Consult date: 01/20/18 Reason for consult: dyspnea, other Chief complaint: Descending cholangitis, sepsis History of present illness: This is a 37-year-old female patient of Dr. Mccrary, who presented to the emergency department on 01/20/2018 at 3:00 in the morning for evaluation of acute onset of epigastric pain, shortness of breath, fever and chills. Patient had an outpatient procedure yesterday on 01/19/2018 for removal of common bile duct stent by Dr. Murry. Originally the CBD stent placement took place in September 2017 when the patient underwent sphincterotomy and stent placement for choledocholithiasis, patient subsequently underwent a laparoscopic cholecystectomy without complication. The patient tolerated the outpatient procedure very well, was discharged home at around 5:00 in the afternoon, her and her stopped and got some dinner, and at 8:00 in the evening patient started having increasing epigastric discomfort that persisted throughout the evening. Patient started developing generalized malaise, fever, hence she decided to go to the hospital. In the ER patient was tachycardic with a heart rate in the 150s, hypotensive, and febrile with a temperature of 100.3F. Labs revealed leukocytosis with neutrophilia, elevated transaminases, elevated alkaline phosphatase, and total bilirubin. Patient received a total of 3 L of normal saline, and a dose of IV Zosyn. She never did require vasopressor support. This morning she seen in the intensive care unit, awake and alert, answering questions appropriately. Fatigued. No acute distress. No chest pain , no shortness of breath, no abdominal pain this morning. The abdomen is soft, nontender. Currently her IV maintenance fluids is 0.9 normal saline at a rate of 150 ML per hour. No other drips. She is on 2 L per nasal cannula, and her pulse ox is 91-93%, she is still mildly tachycardic, with a heart rate at 104 BPM, she is afebrile this morning, current antibiotic coverage includes Flagyl, Zosyn, and vancomycin. He is receiving feeding for pain control. No nausea or vomiting, no diarrhea. Patient initially presented to [facility] where she she had CTA chest which was negative. CT of abdomen had expected postoperative changes with no obvious abscess formation. GI service has been consulted, and patient is scheduled for urgent ERCP this morning. Review of Systems All systems: negative Constitutional: Denies chills, Denies fever Eyes: denies blurred vision, denies pain Ears, nose, mouth and throat: Denies headache, Denies sore throat Cardiovascular: Denies chest pain, Denies shortness of breath Respiratory: Reports dyspnea, Denies cough Gastrointestinal: Reports abdominal pain, Denies diarrhea, Denies nausea, Denies vomiting Genitourinary: Denies dysuria, Denies hematuria Musculoskeletal: Denies myalgias Integumentary: Denies pruritus, Denies rash Neurological: Denies numbness, Denies weakness Psychiatric: Denies anxiety, Denies depression Endocrine: Denies fatigue, Denies weight change Past Medical History Past Medical History: GERD/Reflux, Hypertension, Liver Disease, Sleep Apnea/CPAP /BIPAP Additional Past Medical History / Comment(s): has cpap machine, fatty liver History of Any Multi-Drug Resistant Organisms: None Reported Past Surgical History: Cholecystectomy (September 2017) Additional Past Surgical History / Comment(s): wisdom teeth, CBD stent September 2017 , removed January 19, 2018 Past Anesthesia/Blood Transfusion Reactions: No Reported Reaction Smoking Status: Never smoker - Past Family History Father Family Medical History: Diabetes Mellitus Medications and Allergies Home Medications Medication Instructions Recorded Confirmed Type Omeprazole 20 mg PO DAILY 10/12/17 01/20/18 History Magnesium Gluconate [Magonate] 500 mg PO DAILY 01/17/18 01/20/18 History [place]-3 Fatty Acids/Fish Oil [Fish 4 cap PO DAILY 01/17/18 01/20/18 History Oil 1,000 mg Softgel] Potassium 99 mg PO DAILY 01/17/18 01/20/18 History Allergies Allergy/AdvReac Type Severity Reaction Status Date / Time No Known Allergies Allergy Verified 01/19/18 11:01 Physical Exam Vitals: Vital Signs Temp Pulse Resp BP Pulse Ox 01/20/18 07:10 104 H 15 97/56 91 L 01/20/18 07:00 106 H 14 99/53 91 L 01/20/18 06:50 108 H 15 99/53 93 L 01/20/18 06:41 112 H 14 95 01/20/18 06:23 98.7 F 118 H 15 101/56 99 01/20/18 05:30 112 H 18 102/52 98 01/20/18 05:16 103 H 16 96/52 97 01/20/18 05:00 105 H 18 94/55 98 01/20/18 04:31 108 H 15 91/52 98 01/20/18 04:01 115 H 01/20/18 03:57 109 H 16 91/54 99 01/20/18 03:28 117 H 16 101/50 99 01/20/18 03:22 98.7 F 122 H 15 103/52 98 Intake and Output 01/19/18 01/20/18 01/20/18 22:59 06:59 14:59 Intake Total 150 Output Total 0 Balance 150 Intake: IV 150 Sodium Chloride 0.9% 1, 150 000 ml @ 150 mls/hr IV . Q6H40M [facility] Rx#:[id number] Output: Urine 0 Other: Weight 99.79 kg GENERAL EXAM: Alert, pleasant, 37-year-old white female, comfortable in no apparent distress, appears to be fatigued HEAD: Normocephalic/atraumatic. EYES: Normal reaction of pupils, equal size. Conjunctiva pink, sclera white. NOSE: Clear with pink turbinates. THROAT: No erythema or exudates. NECK: No masses, no JVD, no thyroid enlargement, no adenopathy. CHEST: No chest wall deformity. Symmetrical expansion. LUNGS: Equal air entry with no crackles, wheeze, rhonchi or dullness. CVS: Regular rate and rhythm, normal S1 and S2, no gallops, no murmurs, no rubs ABDOMEN: Soft, nontender. No hepatosplenomegaly, normal bowel sounds, no guarding or rigidity. EXTREMITIES: No clubbing, no edema, no cyanosis, 2+ pulses and upper and lower extremities. MUSCULOSKELETAL: Muscle strength and tone normal. SPINE: No scoliosis or deformity SKIN: No rashes CENTRAL NERVOUS SYSTEM: Alert and oriented -3. No focal deficits, tone is normal in all 4 extremities. PSYCHIATRIC: Alert and oriented -3. Appropriate affect. Intact judgment and insight. Results - Laboratory Findings CBC and BMP: 01/20/18 03:34 01/20/18 03:34 PT/INR, D-dimer PT 11.9 sec (9.0-12.0) 01/20/18 03:34 INR 1.2 (<1.2) H 01/20/18 03:34 Abnormal lab findings: Abnormal Labs 01/20/18 01/20/1801/20/18 03:25 03:34 03:34 WBC 13.8 H Neutrophils # 12.9 H Lymphocytes # 0.3 L INR Sodium 136 L Potassium 3.4 L Carbon Dioxide 20 L Creatinine 0.49 L Glucose 121 H POC Glucose (mg/dL) 115 H Calcium 8.1 L Magnesium Total Bilirubin 3.4 H AST 345 H ALT 262 H Albumin 3.2 L Ur Specific [place] Urine Protein Urine Ketones 01/20/18 01/20/18 01/20/18 03:34 03:34 06:27 WBC Neutrophils # Lymphocytes # INR 1.2 H Sodium Potassium Carbon Dioxide Creatinine Glucose POC Glucose (mg/dL) Calcium Magnesium 1.3 L Total Bilirubin AST ALT Albumin Ur Specific [place] >1.050 H Urine Protein Trace H Urine Ketones 4+ H 01/20/18 06:40 WBC Neutrophils # Lymphocytes # INR Sodium Potassium Carbon Dioxide Creatinine Glucose POC Glucose (mg/dL) 125 H Calcium Magnesium Total Bilirubin AST ALT Albumin Ur Specific [place] Urine Protein Urine Ketones - Diagnostic Findings Chest x-ray: report reviewed, image reviewed Assessment and Plan Plan: Assessment: #1. Septic shock related to ascending cholangitis, patient presented with acute onset epigastric abdominal pain, fever, tachycardia, hypotension #2. Status post common bile duct stent removal, on 01/19/2018 #3. Hx of cholelithiasis, status post choledocholithiasis, common bile duct stent placement and subsequent laparoscopic cholecystectomy in September 2017 #4. Leukocytosis #5. Hypotension related to sepsis, improved with IV fluids #6. Hypokalemia, hypomagnesemia #7. Elevated transaminases #8. Obstructive sleep apnea on CPAP #9. Hypertension #10. GERD/reflux Plan: Continue IV fluids at a rate of 150 ML per hour, patient is covered with a combination of Flagyl and Zosyn, blood cultures and urine culture are pending. He is afebrile this morning. Currently in no acute distress, has not required vasopressor support, heart rate less tachycardic. ERCP is planned for today. GI and DVT prophylaxis, we'll continue to follow I performed a history & physical examination of the patient and discussed their management with my nurse practitioner, Shayy Cage. I reviewed the nurse practitioner's note and agree with the documented findings and plan of care. Lung sounds are clear. The findings and the impression was discussed with the patient. I attest to the documentation by the nurse practitioner. Time with Patient: Greater than 30
[2018-01-20] MEDS: metroNIDAZOLE-NS PMX 500 MG in SALINE 1 100ML.BAG IVPB SCH ×3 (10:23→21:58)
--- NOTE | 2018-01-20 11:07 | P.CONS ---
History of Present Illness - Reason for Consult Consult date: 01/20/18 ascending cholangitis Requesting physician: Thomas Rojo - Chief Complaint abdominal pain - History of Present Illness 37-year-old female patient of Dr. Mccrary with a past medical history of obstructive jaundice secondary to choledocholithiasis status post ERCP sphincterotomy biliary stent placement 10/14/17, followed by laparoscopic cholecystectomy October 17, 2017. Patient underwent outpatient EGD with biliary stent removal yesterday. She presents last night to [place] emergency room with shortness of breath, increased right upper quadrant abdominal pain and reported fever of 104. Transfer to [facility] with episodes of low blood pressure systolic 90s, elevated heart rate 110's. T-max 100.3. She received multiple fluid boluses. CT chest and [place] was negative. CT abdomen no abscess formation, CBD 6 mm. No mentioning of choledocholithiasis. No intrahepatic duct dilation. Possible edema fluid arturo hepatis. Admission white count 13.8. Hemoglobin 12.6. Platelet 218. BUN 7. Creatinine 0.4. Total bilirubin 3.4. AST 345. ALT 262. AP 111. HCG not detected. INR 1.2. Hepatitis screen September 2017 nonreactive. Patient had some baseline chemistries drawn yesterday morning prior to stent removal and preparation for her follow-up visit with PCP. Liver enzymes; total bilirubin 3.2. AST 425. ALT 224. AP 160. White count 11. Hemoglobin 14.5. She has been expressing persistent constant right upper quadrant discomfort but exacerbated after stent removal yesterday. Denies change in the color of her urine or stool. No weight loss. No recent antibiotics. Review of Systems Constitutional: Admits with fever denies, chills, sweats, weight gain, or loss. HEENT: Negative for migraines, blurred vision or loss, earaches, drainage, tinnitus, oral mucosal lesions, dysphagia, or odynophagia. CARDIAC: Negative for chest pain, arrhythmias, or palpitation. RESPIRATORY: Negative for shortness of breath, hemoptysis, cough, or sputum production. GI: See HPI for pertinent findings. : Negative for hematuria, urgency, frequency, polyuria, or dysuria. GYNc: Denies possibility of . Negative vaginal discharge. MUSCULOSKELETAL: Negative for muscle aches, swelling, arthritis, and arthralgias. NEUROLOGIC: Negative for stroke or TIA. ENDOCRINE: Negative for thyroid problems. SKIN: Negative for rash or itching. PSYCHIATRIC: Negative history for depression and anxiety Past Medical History Past Medical History: GERD/Reflux, Hypertension, Liver Disease, Sleep Apnea/CPAP /BIPAP Additional Past Medical History / Comment(s): Choledocholithiasis, fatty liver, [place]URI[place] with Cpap. History of Any Multi-Drug Resistant Organisms: None Reported Past Surgical History: Cholecystectomy Additional Past Surgical History / Comment(s): CBD stent September 2017, removed January 19, 2018, wisdom teeth extractions. Past Anesthesia/Blood Transfusion Reactions: No Reported Reaction Smoking Status: Never smoker - Past Family History Father Family Medical History: Diabetes Mellitus Mother Family Medical History: No Reported History Additional Family Medical History / Comment(s): Mother is obese. Medications and Allergies Home Medications Medication Instructions Recorded Confirmed Type Omeprazole 20 mg PO DAILY 10/12/17 01/20/18 History Magnesium Gluconate [Magonate] 500 mg PO DAILY 01/17/18 01/20/18 History [place]-3 Fatty Acids/Fish Oil [Fish 4 cap PO DAILY 01/17/18 01/20/18 History Oil 1,000 mg Softgel] Potassium 99 mg PO DAILY 01/17/18 01/20/18 History Allergies Allergy/AdvReac Type Severity Reaction Status Date / Time No Known Allergies Allergy Verified 01/19/18 11:01 Physical Exam Vitals: Vital Signs Temp Pulse Resp BP Pulse Ox 01/20/18 07:10 104 H 15 97/56 91 L 01/20/18 07:00 106 H 14 99/53 91 L 01/20/18 06:50 108 H 15 99/53 93 L 01/20/18 06:41 112 H 14 95 01/20/18 06:23 98.7 F 118 H 15 101/56 99 01/20/18 05:30 112 H 18 102/52 98 01/20/18 05:16 103 H 16 96/52 97 01/20/18 05:00 105 H 18 94/55 98 01/20/18 04:31 108 H 15 91/52 98 01/20/18 04:01 115 H 01/20/18 03:57 109 H 16 91/54 99 01/20/18 03:28 117 H 16 101/50 99 01/20/18 03:22 98.7 F 122 H 15 103/52 98 Intake and Output 01/19/18 01/20/18 01/20/18 22:59 06:59 14:59 Intake Total 150 Output Total 0 Balance 150 Intake: IV 150 Sodium Chloride 0.9% 1, 150 000 ml @ 150 mls/hr IV . Q6H40M [facility] Rx#:[id number] Output: Urine 0 Other: Weight 99.79 kg General appearance: The patient is alert, oriented, in no acute distress. HET: Head is normocephalic and atraumatic. Pupils are equal and reactive. Sclerae icterus Oropharynx is clear without lesions. Neck: Supple without lymphadenopathy. Trachea midline. Heart: S1 S2. Regular rate and rhythm. Lungs: No crackles or wheezes are heard. Abdomen: Soft, right upper quadrant midepigastric tenderness, nondistended with bowel sounds. No peritoneal signs. No palpable organomegaly or masses. Extremities: Normal skin color and turgor. No cyanosis, rash, ulceration, clubbing, or edema. Radial and pedal pulses are 2/4 bilaterally. Neurological: No focal deficits. Strength and sensation are grossly intact. Results CBC & Chem 7: 01/20/18 03:34 01/20/18 03:34 Labs: Abnormal Lab Results - Last 24 Hours (Table) 01/20/18 01/20/18 01/20/18 Range/Units 03:25 03:34 03:34 WBC 13.8 H (3.8-10.6) k/uL Neutrophils # 12.9 H (1.3-7.7) k/uL Lymphocytes # 0.3 L (1.0-4.8) k/uL INR (<1.2) Sodium 136 L (137-145) mmol/L Potassium 3.4 L (3.5-5.1) mmol/L Carbon Dioxide 20 L (22-30) mmol/L Creatinine 0.49 L (0.52-1.04) mg/dL Glucose 121 H (74-99) mg/dL POC Glucose (mg/dL) 115 H (75-99) mg/dL Calcium 8.1 L (8.4-10.2) mg/dL Magnesium (1.6-2.3) mg/dL Total Bilirubin 3.4 H (0.2-1.3) mg/dL AST 345 H (14-36) U/L ALT 262 H (9-52) U/L Albumin 3.2 L (3.5-5.0) g/dL Ur Specific [employer] (1.001-1.035) Urine Protein (Negative) Urine Ketones (Negative) 01/20/18 01/20/18 01/20/18 Range/Units 03:34 03:34 06:27 WBC (3.8-10.6) k/uL Neutrophils # (1.3-7.7) k/uL Lymphocytes # (1.0-4.8) k/uL INR 1.2 H (<1.2) Sodium (137-145) mmol/L Potassium (3.5-5.1) mmol/L Carbon Dioxide (22-30) mmol/L Creatinine (0.52-1.04) mg/dL Glucose (74-99) mg/dL POC Glucose (mg/dL) (75-99) mg/dL Calcium (8.4-10.2) mg/dL Magnesium 1.3 L (1.6-2.3) mg/dL Total Bilirubin (0.2-1.3) mg/dL AST (14-36) U/L ALT (9-52) U/L Albumin (3.5-5.0) g/dL Ur Specific [employer] >1.050 H (1.001-1.035) Urine Protein Trace H (Negative) Urine Ketones 4+ H (Negative) 01/20/18 Range/Units 06:40 WBC (3.8-10.6) k/uL Neutrophils # (1.3-7.7) k/uL Lymphocytes # (1.0-4.8) k/uL INR (<1.2) Sodium (137-145) mmol/L Potassium (3.5-5.1) mmol/L Carbon Dioxide (22-30) mmol/L Creatinine (0.52-1.04) mg/dL Glucose (74-99) mg/dL POC Glucose (mg/dL) 125 H (75-99) mg/dL Calcium (8.4-10.2) mg/dL Magnesium (1.6-2.3) mg/dL Total Bilirubin (0.2-1.3) mg/dL AST (14-36) U/L ALT (9-52) U/L Albumin (3.5-5.0) g/dL Ur Specific [employer] (1.001-1.035) Urine Protein (Negative) Urine Ketones (Negative) CT scan - abdomen: report reviewed (reviewed by Dr. Obando) Assessment and Plan (1) Sepsis Narrative/Plan: 37-year-old female with a past medical history of choledocholithiasis status post ERCP sphincterotomy biliary stent placement September 2017 followed by lap cholecystectomy admitted with fever shortness of breath increased epigastric right upper quadrant abdominal pain with elevated liver enzymes jaundice status post outpatient EGD with biliary stent removal consistent with acute ascending cholangitis. Underlying choledocholithiasis possible stricture disease is within the differential however recent CT imaging reported no abnormalities of the biliary tree. Current Visit: Yes Status: Acute Code(s): A41.9 - SEPSIS, UNSPECIFIED ORGANISM SNOMED Code(s): 50758029 (2) H/O cholelithiasis Narrative/Plan: History of cholelithiasis choledocholithiasis laparoscopic cholecystectomy September 2017 Current Visit: Yes Status: Acute Code(s): Z87.19 - PERSONAL HISTORY OF OTHER DISEASES OF THE DIGESTIVE SYSTEM SNOMED Code(s): 977237485 (3) Ascending cholangitis Current Visit: Yes Status: Acute Code(s): K83.0 - CHOLANGITIS SNOMED Code( s): 04073604 Plan: 1. MRCP. Possible ERCP pending MRCP findings. Broad-spectrum antibiotics. Blood cultures obtained and pending. Nothing by mouth except ice chips. CMP this afternoon and in a.m. The bench patternmaker metal has discussed the risks, benefits and alternative therapies for the above-mentioned procedure and for both sedation/analgesia as well as necessary blood product administration, if indicated, as they pertain to this patient. The patient has indicated understanding and acceptance of the risks and procedures discussed. Thank you for this kind referral and the opportunity to participate in the care of your patient. This consultation was discussed with Dr. Murry. The impression and plan of care have been directed as dictated.
[2018-01-20] MEDS: VANCOMYCIN 1,500 MG in SODIUM CHLORIDE 0.9% 250 ML IVPB SCH ×2 (12:46→20:00)
[2018-01-20] MEDS ORDERED: HEPARIN SODIUM,PORCINE 5,000 UNIT/ML 1 ML VIAL SQ SCH (16:00)
--- NOTE | 2018-01-20 16:26 | MR ---
EXAMINATION TYPE: MR MRCP DATE OF EXAM: 01/20/2018 COMPARISON: Outside CT dated 01/19/2018 HISTORY: Elevated liver enzymes Standard multiplanar, multisequence MRI departmental protocol Multiplanar, multisequence images of the abdomen were acquired. 3-D reconstruction was obtained of th e biliary tree. FINDINGS: There is a diminutive appearing gallbladder with the internal gallstones noted. No definite wall thic kening seen although there does appear to be surrounding inflammatory change. There is evidence of ch oledocholithiasis with multiple gallstones identified within the intrapancreatic portion of the commo n bile duct. The common bile duct is dilated at 1.1 cm. Common hepatic duct and intrahepatic biliary tree also mildly prominent. There is evidence of fatty hepatic infiltration. No hepatic lesions are seen. The pancreas and spleen appear unremarkable. Adrenal glands are free of nodule or mass. The kidneys as visualized appear to be free of hydronephrosis or mass. No obvious nephrolithiasis. Basilar atelectatic changes identified. IMPRESSION: 1. Diminutive gallbladder with cholelithiasis and choledocholithiasis. Resultant CBD dilatation as we ll as intrahepatic and hepatic duct prominence. Mild surrounding inflammatory change may reflect acut e cholecystitis changes. Correlate clinically.
[2018-01-20 17:03] LABS: ALT 281 U/L (9-52); AST 273 U/L (14-36); Albumin 3.1 g/dL (3.5-5.0); Alkaline Phosphatase 125 U/L (38-126); Anion Gap 7 mmol/L; Blood Urea Nitrogen 4 mg/dL (7-17); Calcium 8.2 mg/dL (8.4-10.2); Carbon Dioxide 25 mmol/L (22-30); Chloride 109 mmol/L (98-107); Glucose 90 mg/dL (74-99); Potassium 4.1 mmol/L (3.5-5.1); Sodium 141 mmol/L (137-145); Total Bilirubin 4.1 mg/dL (0.2-1.3); Total Protein 6.2 g/dL (6.3-8.2)
--- NOTE | 2018-01-20 19:30 | HP ---
HISTORY AND PHYSICAL DATE OF SERVICE: 01/20/2018. PRESENTING COMPLAINT: Right upper quadrant pain. HISTORY OF PRESENTING COMPLAINT: This is a pleasant 37-year-old patient of Dr. Mccrary. The patient had choledocholithiasis, underwent ERCP, sphincterotomy and bile stent and biliary stent placement on October 14, 2017 and this was followed by on October 17 by laparoscopic cholecystectomy. Yesterday, Dr. Murry carried out removal of the biliary stent and patient went home and started developing right upper quadrant pain and had a fever up to 104. The patient then presented to [facility] from where she was transferred here. The patient had a sepsis like picture with 100s and one tens, pulse of 90. Patient was transferred back here. CT scan of the abdomen was done. There was no intrahepatic duct dilatation. There was some fluid reported around arturo hepatitis. The patient was started on broad-spectrum antibiotics including IV Zosyn, IV Flagyl, vancomycin, IV fluids and admitted to the ICU. Consultation was made to Critical Care and Gastroenterology. The patient has had some nausea, also had some nausea, vomiting, and pain was pretty much localized to the upper abdomen. REVIEW OF SYSTEMS: CONSTITUTIONAL: Febrile, chills. HEENT: None. RESPIRATORY: None. CARDIOVASCULAR: None. GASTROINTESTINAL as above. GENITOURINARY none. MUSCULOSKELETAL none. DERMATOLOGICAL, HEMATOLOGIC, LYMPHATICS: none. PSYCHIATRY none. NEUROLOGICAL none. PAST MEDICAL HISTORY: GERD, hypertension. Fatty liver. Obstructive sleep apnea with CPAP. PAST SURGICAL HISTORY: Cholecystectomy, CBD stent in September of 2017 removed yesterday. SOCIAL HISTORY: . She works at [employer]. No smoking. Alcohol occasionally. FAMILY HISTORY: Diabetes. MEDICATIONS: Home medications: 1. Potassium. 2. Omeprazole 20 mg a day. 3. Fish oil 4 capsules p.o. daily. 4. Magnesium 500 mg p.o. daily. ALLERGIES: None. EXAMINATION: VITAL SIGNS: The patient's temperature reported at the other facility was up to 104. Here she had a heart rate of 122, pulse of 15, blood pressure 103/52. Pulse ox 98% on 2 L. GENERAL APPEARANCE: Well built, BMI 39. Lying in bed, tired appearing. EYES: Pupils are equal. Conjunctivae normal. HEENT: External appearance of nose and ears normal. Oral cavity normal. NECK: JVD not raised. Mass not palpable. RESPIRATORY effort normal. LUNGS are clear. CARDIOVASCULAR: 1st and 2nd sounds normal. No edema. ABDOMEN: Some right upper abdomen tenderness. No guarding or rigidity. Liver and spleen not palpable. Bowel sounds are present. LYMPHATICS: No lymph nodes palpable in the neck and axilla. PSYCHIATRY: Alert and oriented times three. Mood and affect normal. NEUROLOGICAL pupils equal. Cranial nerves grossly intact. Power and sensation grossly intact. INVESTIGATIONS: White count 13.8, hemoglobin 12.6, potassium 3.4, BUN 7, creatinine 0.49, magnesium 1.3, total bilirubin 3.4, AST 345, ALT 262. The patient's LFTs on October 19, 2017 were 88 and 250. ASSESSMENT: 1. Acute ascending cholangitis following removal of CBD stent causing severe sepsis, present on admission with element of septic shock. Patient received fluid boluses at the outside facility. 2. Obesity BMI 39. 3. Gastroesophageal reflux disease. 4. Essential hypertension. 5. Hepatic steatosis. 6. Obstructive sleep apnea uses a CPAP. PLAN: The patient consultation with Dr. Hung from Critical Care and Dr. Obando from Gastroenterology who did order cholangiopancreatographic MRI. The patient is on broad- spectrum antibiotics including IV Flagyl, IV Zosyn, vancomycin. Lovenox was added for DVT prophylaxis and IV fluids at 150 mL an hour. We will also get a general surgical consultation. Care was discussed with the patient. Questions were answered. Copy to Dr. Mccrary. COLLEEN / URSULA: [id number] /
[2018-01-20] MEDS: MORPHINE SULFATE 4 MG/ML SYRINGE IV PRN (19:31)
[2018-01-20] MEDS: ONDANSETRON 4 MG/2 ML VIAL IVP PRN (21:58)
[2018-01-20 23:08] LABS: Glucose,Whole Blood 78 mg/dL (75-99)
[2018-01-21] MEDS: SODIUM CHLORIDE 0.9% 1,000 ML IV SCH ×3 (00:05→16:21)
[2018-01-21] MEDS: PIPERACILLIN-TAZOBACTAM 3.375 GM in DEXTROSE/WATER 1 50ML.BAG IVPB SCH ×3 (00:05→16:20)
[2018-01-21] MEDS: VANCOMYCIN 1,500 MG in SODIUM CHLORIDE 0.9% 250 ML IVPB SCH ×2 (04:05→12:02)
[2018-01-21] MEDS: metroNIDAZOLE-NS PMX 500 MG in SALINE 1 100ML.BAG IVPB SCH ×3 (04:05→16:20)
[2018-01-21 05:33] LABS: ALT 263 U/L (9-52); AST 201 U/L (14-36); Albumin 3.1 g/dL (3.5-5.0); Alkaline Phosphatase 141 U/L (38-126); Anion Gap 9 mmol/L; Blood Urea Nitrogen 2 mg/dL (7-17); Calcium 8.3 mg/dL (8.4-10.2); Carbon Dioxide 22 mmol/L (22-30); Chloride 108 mmol/L (98-107); Glucose 88 mg/dL (74-99); Phosphorus 2.5 mg/dL (2.5-4.5); Potassium 3.5 mmol/L (3.5-5.1); Sodium 139 mmol/L (137-145); Total Bilirubin 4.8 mg/dL (0.2-1.3); Total Protein 6.2 g/dL (6.3-8.2)
[2018-01-21 06:02] LABS: Basophils % (A) 0 %; Eosinophils # (A) 0.2 k/uL (0-0.7); Eosinophils % (A) 2 %; HCT 37.3 % (34.0-46.0); HGB 12.5 gm/dL (11.4-16.0); Lymphocytes # (A) 0.5 k/uL (1.0-4.8); Lymphocytes % (A) 5 %; MCH 29.2 pg (25.0-35.0); MCHC 33.6 g/dL (31.0-37.0); MCV 86.9 fL (80.0-100.0); Mean Platelet Volume 8.9; Monocytes # (A) 0.3 k/uL (0-1.0); Monocytes % (A) 3 %; Neutrophils # (A) 9.1 k/uL (1.3-7.7); Neutrophils % (A) 89 %; Platelet Count 187 k/uL (150-450); RBC 4.29 m/uL (3.80-5.40); RDW 14.4 % (11.5-15.5); WBC 10.2 k/uL (3.8-10.6)
[2018-01-21] MEDS: POTASSIUM CHLORIDE 10 MEQ in WATER FOR INJECTION 1 100ML.BAG IVPB SCH ×4 (06:18→11:55)
[2018-01-21 07:11] LABS: Glucose,Whole Blood 86 mg/dL (75-99)
[2018-01-21] MEDS ORDERED: ENOXAPARIN 40 MG/0.4 ML SYRINGE SQ SCH (09:00)
[2018-01-21] MEDS: MORPHINE SULFATE 4 MG/ML SYRINGE IV PRN (09:30)
[2018-01-21] MEDS: FAMOTIDINE 20 MG/2 ML VIAL IV SCH (09:31)
[2018-01-21] MEDS: ONDANSETRON 4 MG/2 ML VIAL IVP PRN (09:37)
[2018-01-21] MEDS ORDERED: POTASSIUM CHLORIDE ER 20 MEQ TAB.ER PO SCH ×2 (10:00→17:08)
--- NOTE | 2018-01-21 10:05 | P.GSCN ---
History of Present Illness Consult date: 01/21/18 Reason for Consult: Choledocholithiasis History of present illness: Patient in ICU because of initial hypotension. She is doing well at this time. She is a history of recent cholecystectomy in September. She had an ERCP with stent placement. Her stent was removed on . She returned to the ER that evening with complaints of right upper quadrant pain and fevers. She was diagnosed with suspected ascending cholangitis. MRCP shows a small residual infundibulum with stones and choledocholithiasis. She feels better this morning. Bilirubin is at 4. GI following for possible ERCP. Review of Systems The patient denies any acute changes in vision or hearing, no dysphagia or odynophagia, no chest pain or shortness of breath, no dysuria or hematuria, no headache, no runny nose, no rectal bleeding or melena, no unexplained weight loss Past Medical History Past Medical History: GERD/Reflux, Hypertension, Liver Disease, Sleep Apnea/CPAP /BIPAP Additional Past Medical History / Comment(s): Choledocholithiasis, fatty liver, MURIEL with Cpap. History of Any Multi-Drug Resistant Organisms: None Reported Past Surgical History: Cholecystectomy Additional Past Surgical History / Comment(s): CBD stent September 2017, removed January 19, 2018, wisdom teeth extractions. Past Anesthesia/Blood Transfusion Reactions: No Reported Reaction Smoking Status: Never smoker - Past Family History Father Family Medical History: Diabetes Mellitus Mother Family Medical History: No Reported History Additional Family Medical History / Comment(s): Mother is obese. Medications and Allergies Home Medications Medication Instructions Recorded Confirmed Type Omeprazole 20 mg PO DAILY 10/12/17 01/20/18 History Magnesium Gluconate [Magonate] 500 mg PO DAILY 01/17/18 01/20/18 History [place]-3 Fatty Acids/Fish Oil [Fish 4 cap PO DAILY 01/17/18 01/20/18 History Oil 1,000 mg Softgel] Potassium 99 mg PO DAILY 01/17/18 01/20/18 History Allergies Allergy/AdvReac Type Severity Reaction Status Date / Time No Known Allergies Allergy Verified 01/19/18 11:01 Surgical - Exam Vital Signs Temp Pulse Resp BP Pulse Ox 98.7 F 122 H 15 103/52 98 01/20/18 03:22 01/20/18 03:22 01/20/18 03:22 01/20/18 03:22 01/20/18 03:22 Physical exam: General: Well-developed, well-nourished HEENT: Normocephalic, sclerae nonicteric Abdomen: Mild right upper quadrant tenderness, nondistended Extremities: No edema Neuro: Alert and oriented Results - Labs 01/21/18 04:38 01/21/18 04:38 Abnormal Lab Results - Last 24 Hours (Table) 01/20/18 01/21/18 01/21/18 Range/Units 16:12 04:38 04:38 Neutrophils # 9.1 H (1.3-7.7) k/uL Lymphocytes # 0.5 L (1.0-4.8) k/uL Chloride 109 H 108 H (98-107) mmol/L BUN 4 L 2 L (7-17) mg/dL Creatinine 0.47 L 0.44 L (0.52-1.04) mg/dL Calcium 8.2 L 8.3 L (8.4-10.2) mg/dL Total Bilirubin 4.1 H 4.8 H (0.2-1.3) mg/dL AST 273 H 201 H (14-36) U/L ALT 281 H 263 H (9-52) U/L Alkaline Phosphatase 141 H (38-126) U/L Total Protein 6.2 L 6.2 L (6.3-8.2) g/dL Albumin 3.1 L 3.1 L (3.5-5.0) g/dL Microbiology - Last 24 Hours (Table) 01/20/18 03:34 Blood Culture - Preliminary Blood No Growth after 24 hours 01/20/18 06:27 Urine Culture - Preliminary Urine,Clean Catch Diabetes panel 01/20/18 01/21/18 Range/Units 16:12 04:38 Sodium 141 139 (137-145) mmol/L Potassium 4.1 3.5 (3.5-5.1) mmol/L Chloride 109 H 108 H (98-107) mmol/L Carbon Dioxide 25 22 (22-30) mmol/L BUN 4 L 2 L (7-17) mg/dL Creatinine 0.47 L 0.44 L (0.52-1.04) mg/dL Glucose 90 88 (74-99) mg/dL Calcium 8.2 L 8.3 L (8.4-10.2) mg/dL AST 273 H 201 H (14-36) U/L ALT 281 H 263 H (9-52) U/L Alkaline Phosphatase 125 141 H (38-126) U/L Total Protein 6.2 L 6.2 L (6.3-8.2) g/dL Albumin 3.1 L 3.1 L (3.5-5.0) g/dL Calcium panel 01/20/18 01/21/18 Range/Units 16:12 04:38 Calcium 8.2 L 8.3 L (8.4-10.2) mg/dL Phosphorus 2.5 (2.5-4.5) mg/dL Albumin 3.1 L 3.1 L (3.5-5.0) g/dL Pituitary panel 01/20/18 01/21/18 Range/Units 16:12 04:38 Sodium 141 139 (137-145) mmol/L Potassium 4.1 3.5 (3.5-5.1) mmol/L Chloride 109 H 108 H (98-107) mmol/L Carbon Dioxide 25 22 (22-30) mmol/L BUN 4 L 2 L (7-17) mg/dL Creatinine 0.47 L 0.44 L (0.52-1.04) mg/dL Glucose 90 88 (74-99) mg/dL Calcium 8.2 L 8.3 L (8.4-10.2) mg/dL Adrenal panel 01/20/18 01/21/18 Range/Units 16:12 04:38 Sodium 141 139 (137-145) mmol/L Potassium 4.1 3.5 (3.5-5.1) mmol/L Chloride 109 H 108 H (98-107) mmol/L Carbon Dioxide 25 22 (22-30) mmol/L BUN 4 L 2 L (7-17) mg/dL Creatinine 0.47 L 0.44 L (0.52-1.04) mg/dL Glucose 90 88 (74-99) mg/dL Calcium 8.2 L 8.3 L (8.4-10.2) mg/dL Total Bilirubin 4.1 H 4.8 H (0.2-1.3) mg/dL AST 273 H 201 H (14-36) U/L ALT 281 H 263 H (9-52) U/L Alkaline Phosphatase 125 141 H (38-126) U/L Total Protein 6.2 L 6.2 L (6.3-8.2) g/dL Albumin 3.1 L 3.1 L (3.5-5.0) g/dL Assessment and Plan (1) Choledocholithiasis with cholecystitis Narrative/Plan: Keep nothing by mouth for now. Await GI decision regarding ERCP here or a tertiary care center. No surgical intervention planned. Current Visit: No Status: Acute Code(s): K80.40 - CALCULUS OF BILE DUCT W CHOLECYSTITIS, UNSP, W/O OBSTRUCTION SNOMED Code(s): 20927134
[2018-01-21] MEDS ORDERED: VANCOMYCIN TROUGH DUE 1 EACH MISC MISCELLANE ONE (11:00)
[2018-01-21 11:22] LABS: Glucose,Whole Blood 74 mg/dL (75-99)
--- NOTE | 2018-01-21 11:41 | P.PN ---
Subjective Progress Note Date: 01/21/18 Principal diagnosis: Suspected descending cholangitis, sepsis This is a 37-year-old female patient of Dr. Mccrary, who presented to the emergency department on 01/20/2018 at 3:00 in the morning for evaluation of acute onset of epigastric pain, shortness of breath, fever and chills. Patient had an outpatient procedure yesterday on 01/19/2018 for removal of common bile duct stent by Dr. Murry. Originally the CBD stent placement took place in September 2017 when the patient underwent sphincterotomy and stent placement for choledocholithiasis, patient subsequently underwent a laparoscopic cholecystectomy without complication. The patient tolerated the outpatient procedure very well, was discharged home at around 5:00 in the afternoon, her and her stopped and got some dinner, and at 8:00 in the evening patient started having increasing epigastric discomfort that persisted throughout the evening. Patient started developing generalized malaise, fever, hence she decided to go to the hospital. In the ER patient was tachycardic with a heart rate in the 150s, hypotensive, and febrile with a temperature of 100.3F. Labs revealed leukocytosis with neutrophilia, elevated transaminases, elevated alkaline phosphatase, and total bilirubin. Patient received a total of 3 L of normal saline, and a dose of IV Zosyn. She never did require vasopressor support. This morning she seen in the intensive care unit, awake and alert, answering questions appropriately. Fatigued. No acute distress. No chest pain , no shortness of breath, no abdominal pain this morning. The abdomen is soft, nontender. Currently her IV maintenance fluids is 0.9 normal saline at a rate of 150 ML per hour. No other drips. She is on 2 L per nasal cannula, and her pulse ox is 91-93%, she is still mildly tachycardic, with a heart rate at 104 BPM, she is afebrile this morning, current antibiotic coverage includes Flagyl, Zosyn, and vancomycin. He is receiving feeding for pain control. No nausea or vomiting, no diarrhea. Patient initially presented to [facility] where she she had CTA chest which was negative. CT of abdomen had expected postoperative changes with no obvious abscess formation. GI service has been consulted, and patient is scheduled for urgent ERCP this morning. The patient is seen again today 01/21/2018 in follow-up in the intensive care unit. She is awake and alert in no acute distress. She is still having ongoing issues with abdominal discomfort. She did undergo a MRCP yesterday. She was found to have a diminutive gallbladder with cholelithiasis and cold duct cholelithiasis. Resultant CBD limitation as well as intrahepatic and hepatic duct prominence. Mild surrounding inflammatory changes that reflect acute cholecystitis. She is currently afebrile. Slightly tachycardic. Slightly tachypneic. Slightly hypertensive. Maintaining O2 saturations in the mid 90s on room air. Blood and urine cultures reveal no growth thus far. White count 10.2. Hemoglobin 12.5. Creatinine 0.44. Total bilirubin 4.8. AST 201. ALT 263. Alk phos 141. She is currently on metronidazole, vancomycin and Zosyn. Objective - Vital Signs Vital signs: Vital Signs Temp 97.7 F 01/21/18 08:00 Pulse 112 H 01/21/18 11:00 Resp 29 H 01/21/18 11:00 BP 154/91 01/21/18 11:00 Pulse Ox 95 01/21/18 11:00 Intake & Output 01/20/18 01/21/18 01/21/18 18:59 06:59 18:59 Intake Total 2700 2687.5 725.0 Output Total 550 1400 Balance 2150 2687.5 -675.0 Weight 104.4 kg Intake: IV 2700 2687.5 725.0 Magnesium Sulfate-D5w Pmx 200 1 gm In Dextrose/Water 1 100ml.bag @ 100 mls/hr IVPB Q1H [facility] Rx#: [id number] Piperacillin-Tazobactam 3 100 112.5 25.0 .375 gm In Dextrose/Water 1 50ml.bag @ 12.5 mls/hr IVPB Q8HR [facility] Rx#: [id number] Potassium Chloride 10 meq 400 In Water For Injection 1 100ml.bag @ 100 mls/hr IVPB Q1HR [facility] Rx#: [id number] Potassium Chloride 10 meq 150 In Water For Injection 1 100ml.bag @ 100 mls/hr IVPB Q1HR [facility] Rx#: [id number] Sodium Chloride 0.9% 1, 1800 1875 450 000 ml @ 150 mls/hr IV . Q6H40M [facility] Rx#:[id number] Vancomycin 1,500 mg In 500 Sodium Chloride 0.9% 250 ml @ 125 mls/hr IVPB Q8H [facility] Rx#:[id number] metroNIDAZOLE-NS PMX 500 200 100 mg In Saline 1 100ml.bag @ 100 mls/hr IVPB ONCE STA Rx#:[id number] metroNIDAZOLE-NS PMX 500 100 100 mg In Saline 1 100ml.bag @ 100 mls/hr IVPB Q6H [facility] Rx#:[id number] Output: Urine 550 1400 Other: Voiding Method Toilet Toilet Toilet # Voids 1 1 # Bowel Movements 1 - Exam GENERAL EXAM: Alert, oriented, in no apparent distress. HEAD: Normocephalic/atraumatic. EYES: Normal reaction of pupils, equal size. Conjunctiva pink, sclera white. NOSE: Clear with pink turbinates. THROAT: No erythema or exudates. NECK: No masses, no JVD, no thyroid enlargement, no adenopathy. CHEST: No chest wall deformity. Symmetrical expansion. LUNGS: Equal air entry with no crackles, wheeze, rhonchi or dullness. CVS: Regular rate and rhythm, normal S1 and S2, no gallops, no murmurs, no rubs ABDOMEN: Soft, slightly tender in the right upper quadrant. No hepatosplenomegaly, normal bowel sounds, no guarding or rigidity. EXTREMITIES: No clubbing, no edema, no cyanosis, 2+ pulses and upper and lower extremities. MUSCULOSKELETAL: Muscle strength and tone normal. SPINE: No scoliosis or deformity SKIN: No rashes CENTRAL NERVOUS SYSTEM: Alert and oriented -3. No focal deficits, tone is normal in all 4 extremities. PSYCHIATRIC: Alert and oriented -3. Appropriate affect. Intact judgment and insight. - Labs CBC & Chem 7: 01/21/18 04:38 01/21/18 04:38 Labs: Abnormal Lab Results - Last 24 Hours (Table) 01/20/18 01/21/18 01/21/18 Range/Units 16:12 04:38 04:38 Neutrophils # 9.1 H (1.3-7.7) k/uL Lymphocytes # 0.5 L (1.0-4.8) k/uL Chloride 109 H 108 H (98-107) mmol/L BUN 4 L 2 L (7-17) mg/dL Creatinine 0.47 L 0.44 L (0.52-1.04) mg/dL POC Glucose (mg/dL) (75-99) mg/dL Calcium 8.2 L 8.3 L (8.4-10.2) mg/dL Total Bilirubin 4.1 H 4.8 H (0.2-1.3) mg/dL AST 273 H 201 H (14-36) U/L ALT 281 H 263 H (9-52) U/L Alkaline Phosphatase 141 H (38-126) U/L Total Protein 6.2 L 6.2 L (6.3-8.2) g/dL Albumin 3.1 L 3.1 L (3.5-5.0) g/dL 01/21/18 Range/Units 11:21 Neutrophils # (1.3-7.7) k/uL Lymphocytes # (1.0-4.8) k/uL Chloride (98-107) mmol/L BUN (7-17) mg/dL Creatinine (0.52-1.04) mg/dL POC Glucose (mg/dL) 74 L (75-99) mg/dL Calcium (8.4-10.2) mg/dL Total Bilirubin (0.2-1.3) mg/dL AST (14-36) U/L ALT (9-52) U/L Alkaline Phosphatase (38-126) U/L Total Protein (6.3-8.2) g/dL Albumin (3.5-5.0) g/dL Microbiology - Last 24 Hours (Table) 01/20/18 03:34 Blood Culture - Preliminary Blood No Growth after 24 hours 01/20/18 06:27 Urine Culture - Preliminary Urine,Clean Catch Assessment and Plan Assessment: Impression: #1 Acute abdominal pain secondary to suspected ascending cholangitis. MRCP shows a small residual infundibulum with stones and choledocholithiasis. #2 Recent cholecystectomy in September 2017. #3 Recent ERCP with stent placement. Stent was removed on 01/19/2018. #4 Sepsis with septic shock secondary to above, recovered. #5 Elevated transaminases. #6 History of obstructive sleep apnea on CPAP in the outpatient setting. #7 Hypertension. #8 Gastroesophageal reflux disease. Plan: The patient was seen and evaluated by Dr. Hung. We'll continue her current antibiotics for now including metronidazole, Zosyn and vancomycin. She has been seen by GI services this morning. They're planning transfer to tertiary care center. Until then we'll continue to monitor her here in the intensive care unit. We'll continue to follow. Critical care time 35 minutes. I, the cosigning physician, performed a history & physical examination of the patient. Lungs sounds are clear. Maintaining good O2 saturations in the 90s on room air. I discussed the assessment and plan of care with my nurse practitioner, Ashleigh Mann. I attest to the above note as dictated by her. Time with Patient: Greater than 30
[2018-01-21 16:27] VITALS: RESP 30; TEMP 97.8
[2018-01-21 17:23] LABS: Glucose,Whole Blood 78 mg/dL (75-99)
--- NOTE | 2018-01-21 17:37 | DS ---
DISCHARGE SUMMARY DATE OF ADMISSION: 01/20/2018 DATE OF DISCHARGE/TRANSFER: 01/21/2018 FINAL DIAGNOSES: 1. Acute ascending cholangitis following removal of CBD stent with remnant choledocholithiasis. 2. Obesity; body mass index of 39. 3. Gastroesophageal reflux disease. 4. Essential hypertension. 5. Hepatic steatosis. 6. Obstructive sleep apnea, uses CPAP. 7. Severe sepsis present on admission from #1. HOSPITAL COURSE: This is a very pleasant 37-year-old patient of Dr. Mccrary, had a diagnosis of choledocholithiasis, had undergone ERCP and biliary stent placement on October 14, follow with sphincterotomy and this was followed on October 17 by laparoscopic cholecystectomy. On 01/19/2018 Dr. Murry had a bili stent removed and patient went home and developed right upper quadrant pain and a fever up to 104, became septic, went to the local hospital for when she was transferred here. CT scan showed some fluid around the arturo hepatis. Patient has been started on broad-spectrum antibiotics including IV Zosyn, IV Flagyl, IV vancomycin, admitted to the ICU. Patient did undergo an MRCP that is revealing choledocholithiasis and multiple gallstones identified in the intrahepatic portion of the common bile duct. The common bile duct is dilated at 1.1 cm. The patient was seen by Dr. Murry today and because of the complication and further possible surgical intervention, it was felt patient would be served better at a higher level of care, which cannot be provided here. Dr. Murry did speak to me. I did speak to the patient and her and were agreeable for the same. I did speak to then Dr. Collado, admitting surgical AOD at [facility], [facility] and the patient has been accepted there. Total time spent today was more than 35 minutes. On examination, temperature 97.8, pulse 110, respiration 26, blood pressure 146/81 pulse ox 98%. ABDOMEN; Soft, right upper quadrant tenderness. No guarding or rigidity. LUNGS: Fair air entry. CURRENT MEDICATIONS: 1. Lovenox 40 mg subcu daily. 2. Pepcid 20 mg IV q.12. 3. Flagyl 50 mg IV q.6. 4. Morphine 4 mg IV q.2 p.r.n. 5. Zofran 4 mg IV q.6 p.r.n. 6. Zosyn 3.375 g q.8. 7. Normal saline 150 mL/hour. 8. Vancomycin 750 mg q.8, pharmacy been dosing. DISPOSITION: Surgical ICU at [facility], [address] [place] [address]. Condition at transfers stable. MMODL / IJN: [id number] /
[2018-01-21 18:17] VITALS: BP 150/86; PULSE 109
[2018-01-21] MEDS ORDERED: VANCOMYCIN 1,750 MG in SODIUM CHLORIDE 0.9% 500 ML IVPB SCH (20:00)
== END 2018-01-21 18:55 | disposition short-term general hospital (02) | DRG 862 ==
LOC: EC 03:17 → 6ICU 03:50
PROVIDERS: ADMIT Hospitalist; ATTEND Hospitalist
DX: T81.4XXA Infection following a procedure, initial encounter (principal); R65.21 Severe sepsis with septic shock; K80.32 Calculus of bile duct with acute cholangitis without obstruction; K80.62 Calculus of gallbladder and bile duct with acute cholecystitis without obstruction; E66.9 Obesity, unspecified; E83.42 Hypomagnesemia; E87.6 Hypokalemia; G47.33 Obstructive sleep apnea (adult) (pediatric); I10 Essential (primary) hypertension; K21.9 Gastro-esophageal reflux disease without esophagitis; K75.89 Other specified inflammatory liver diseases; K76.0 Fatty (change of) liver, not elsewhere classified; Z79.899 Other long term (current) drug therapy; Z68.39 Body mass index [BMI] 39.0-39.9, adult; Z83.3 Family history of diabetes mellitus; Z90.49 Acquired absence of other specified parts of digestive tract
CPT/HCPCS: 36415; 74181; 80053; 80202; 81003; 83605; 83735; 84100; 84132; 85025; 85610; 85730; 87040; 87086; 93005; 96365; 96367; 99291